=== PATIENT | female | born 1965 | race African-American/Black ===

== ENCOUNTER → 2016-12-03 | Outpatient (CLI) | payer OTHER, MEDICAID ==
[2016-08-01 02:05] VITALS: BP 121/81
--- NOTE | 2016-12-03 12:30 | MRI ---
HISTORY: Low back pain radiating down right leg Study: MRI lumbar spine without contrast Comparison: 11/25/2014 Technique: Multiplanar multi-sequence MRI of the lumbar spine was obtained. Sagittal T1, sagittal T 2, and stir weighted images, axial T1, and axial T2 images were obtained. Findings: The lumbar spine demonstrates normal alignment. there is some degenerative marrow endplate edema at L4-5 associated with a Schmorl's node at the inferior endplate of L4 and superior plate of L5. The conus of the cord terminates normally. The surrounding soft tissues are within normal limits. Verte bral body heights are preserved. There is multilevel spondylosis and disc desiccation throughout the visualized lumbar and thoracic spine. T12 -- L1: No significant stenosis. L1 -- L2: No significant stenosis. L2 -- L3: Mild to moderate bilateral facet hypertrophic changes without significant mass/stenosis. L3 -- L4: There is a broad-based disc bulge and mild to moderate bilateral facet hypertrophic change s without significant stenosis. L4 -- L5: There is a large circumferential disc bulge and small central annular tear with associated facet degenerative change. There is resultant mild to moderate bilateral foraminal narrowing, sligh tly increased on the right side. L5 -- S1: There is a right lateral annular tear associated with a disc bulge slightly asymmetric to the right with resultant moderate right foraminal stenosis, possibly with disc material contacting t he exiting right L5 nerve. Mild bilateral facet degenerative changes without listhesis. IMPRESSION: 1. L5-S1 disc bulge asymmetric to the right with associated right lateral annular tear resulting in moderate foraminal stenosis, possibly with disc material contacting the exiting right L5 nerve, celeste elate clinically with exam. 2. Mild to moderate bilateral foraminal narrowing at L4-5, slightly greater on the right side. 3. Reactive degenerative endplate marrow changes at L4-5 associated with chronic Schmorl's nodes. Reported By:
== END ==
LOC: RAD 10:56
PROVIDERS: ATTEND Nurse Practitioner Family
DX: M54.41 Lumbago with sciatica, right side (principal)
CPT/HCPCS: 72148

== ENCOUNTER → 2016-12-27 | Outpatient (CLI) | payer OTHER, MEDICAID ==
[2016-08-01 02:05] VITALS: BP 121/81
[2016-12-27 08:24] LABS: BASOPHILS # (AUTO) 0.1 X10^3/uL (0.0-0.1); BASOPHILS % (AUTO) 1.3 % (0.2-1.0); EOSINOPHILS # (AUTO) 0.1 x10^3/uL (0.0-0.2); EOSINOPHILS % (AUTO) 1.2 % (0.9-2.9); HEMATOCRIT 47.7 % (36.0-47.0); LYMPHOCYTES # (AUTO) 2.3 X10^3/uL (1.3-2.9); LYMPHOCYTES % (AUTO) 41.4 % (21.0-51.0); MEAN CORPUSCULAR HEMOGLOBIN 30.9 pg (27.0-34.0); MEAN CORPUSCULAR HGB CONC 33.6 g/dL (33.0-35.0); MEAN PLATELET VOLUME 8.8 fL (7.4-11.0); MONOCYTES # (AUTO) 0.4 x10^3/uL (0.3-0.8); MONOCYTES % (AUTO) 6.4 % (0.0-13.0); NEUTROPHILS # (AUTO) 2.8 x10^3/uL (2.2-4.8); NEUTROPHILS % (AUTO) 49.7 % (42.0-75.0); PLATELET COUNT 223 X10^3/uL (150.0-450.0); RED BLOOD COUNT 5.18 X10^6/uL (3.5-5.4); RED CELL DISTRIBUTION WIDTH 13.3 % (11.6-16.5); WHITE BLOOD COUNT 5.7 X10^3/uL (3.6-10.0)
[2016-12-27 08:39] LABS: ALANINE AMINOTRANSFERASE 20 Units/L (12-78); ALBUMIN 3.7 g/dL (3.4-5.0); ALKALINE PHOSPHATASE 81 Units/L (46-116); ASPARTATE AMINO TRANSFERASE 12 Units/L (15-37); BLOOD UREA NITROGEN 10 mg/dL (7-18); CALCIUM 9.1 mg/dL (8.5-10.1); CARBON DIOXIDE 29.7 mmol/L (21-32); CHLORIDE 99 mmol/L (98-107); CHOL/HDL RATIO 1.9 (0.0-5.0); CHOLESTEROL 160 mg/dL (0-200); CREATININE 0.99 mg/dL (0.55-1.02); GLUCOSE 105 mg/dL (65-99); HDL CHOLESTEROL 83 mg/dL (40-60); SODIUM 136 mmol/L (136-145); TOTAL PROTEIN 7.7 g/dL (6.4-8.2); TRIGLYCERIDES 44 mg/dL (0-150); eGFR BLACK RACES > 60 (>60); eGFR NON BLACK RACES > 60 (>60)
== END ==
LOC: LAB 07:50
PROVIDERS: ATTEND Nurse Practitioner Family
DX: Z00.00 Encounter for general adult medical examination without abnormal findings (principal); R79.89 Other specified abnormal findings of blood chemistry
CPT/HCPCS: 36415; 80053; 80061; 82671; 84403; 85025

== ENCOUNTER → 2017-01-01 | Outpatient (CLI) | payer OTHER, MEDICAID ==
[2016-08-01 02:05] VITALS: BP 121/81
--- NOTE | 2017-01-02 09:59 | MG ---
HISTORY: SCREENING Comparison: Multiple priors dating back to December 29, 2012 FINDINGS: Bilateral CC and MLO projections of the right and left breast were obtained. Heterogeneously dense fibroglandular tissue is seen to be present without significant interval change. No suspicious arch itectural distortion, mass or clustered microcalcifications can be observed to suggest malignancy. No skin thickening or nipple retraction is appreciated. No pathological lymphadenopathy can be kenyon ntified. Benign-appearing calcifications are noted within the right and left breast. IMPRESSION: NO RADIOGRAPHIC EVIDENCE OF MALIGNANCY. ACR CATEGORY 2 - benign findings. FOLLOW-UP EXAM 1 YEAR. Diagnostic CAD was utilized and reviewed. * 0 (ZERO) - ASSESSMENT INCOMPLETE; ADDITIONAL IMAGING IS NEEDED. * 1/ (ONE) - NEGATIVE. * 2/II (TWO) - BENIGN FINDINGS. * 3/III (THREE) - PROBABLY BENIGN FINDING; SHORT INTERVAL FOLLOW-UP SUGGESTED. * 4/IV (FOUR) - SUSPICIOUS ABNORMALITY; BIOPSY SHOULD BE CONSIDERED. * 5/V (FIVE) - HIGHLY SUSPICIOUS OF MALIGNANCY; BIOPSY SHOULD BE PERFORMED. A NEGATIVE X-RAY REPORT SHOULD NOT DELAY BIOPSY IF A DOMINANT OR CLINICALLY SUSPICIOUS MASS IS PRESENT; 4 TO 8 PERCENT OF CANCERS ARE NOT IDENTIFIED BY X-RAY. A NEG ATIVE REPORT MAY REINFORCE THE CLINICAL IMPRESSION. ADENOSIS AND DENSE BREASTS MAY OBSCURE AN UNDER LYING NEOPLASM. Reported By:
== END ==
LOC: RAD 13:47
PROVIDERS: ATTEND Nurse Practitioner Family
DX: Z00.00 Encounter for general adult medical examination without abnormal findings (principal); Z12.31 Encounter for screening mammogram for malignant neoplasm of breast; K21.9 Gastro-esophageal reflux disease without esophagitis; I10 Essential (primary) hypertension; Z79.890 Hormone replacement therapy; Z12.11 Encounter for screening for malignant neoplasm of colon
CPT/HCPCS: 77067; 82270

== ENCOUNTER → 2017-04-02 | Outpatient (CLI) | payer OTHER, MEDICAID ==
[2016-08-01 02:05] VITALS: BP 121/81
[2017-04-02 07:56] LABS: BASOPHILS # (AUTO) 0.1 X10^3/uL (0.0-0.1); BASOPHILS % (AUTO) 1.3 % (0.2-1.0); EOSINOPHILS # (AUTO) 0.1 x10^3/uL (0.0-0.2); EOSINOPHILS % (AUTO) 1.8 % (0.9-2.9); HEMATOCRIT 45.5 % (36.0-47.0); HEMOGLOBIN 15.5 g/dL (12.0-16.0); LYMPHOCYTES # (AUTO) 3.1 X10^3/uL (1.3-2.9); LYMPHOCYTES % (AUTO) 48.9 % (21.0-51.0); MEAN CORPUSCULAR HEMOGLOBIN 31.7 pg (27.0-34.0); MEAN CORPUSCULAR VOLUME 93.2 fL (80.0-100.0); MEAN PLATELET VOLUME 9.4 fL (7.4-11.0); MONOCYTES # (AUTO) 0.4 x10^3/uL (0.3-0.8); MONOCYTES % (AUTO) 6.2 % (0.0-13.0); NEUTROPHILS # (AUTO) 2.6 x10^3/uL (2.2-4.8); NEUTROPHILS % (AUTO) 41.8 % (42.0-75.0); PLATELET COUNT 263 X10^3/uL (150.0-450.0); RED BLOOD COUNT 4.88 X10^6/uL (3.5-5.4); RED CELL DISTRIBUTION WIDTH 14.6 % (11.6-16.5); WHITE BLOOD COUNT 6.3 X10^3/uL (3.6-10.0)
[2017-04-02 08:06] LABS: ALANINE AMINOTRANSFERASE 15 Units/L (12-78); ALBUMIN 3.6 g/dL (3.4-5.0); ALKALINE PHOSPHATASE 74 Units/L (46-116); ASPARTATE AMINO TRANSFERASE 8 Units/L (15-37); BLOOD UREA NITROGEN 8 mg/dL (7-18); CALCIUM 8.9 mg/dL (8.5-10.1); CARBON DIOXIDE 29.8 mmol/L (21-32); CHLORIDE 104 mmol/L (98-107); CREATININE 0.87 mg/dL (0.55-1.02); GLUCOSE 99 mg/dL (65-99); SODIUM 141 mmol/L (136-145); TOTAL PROTEIN 7.6 g/dL (6.4-8.2); eGFR BLACK RACES > 60 (>60); eGFR NON BLACK RACES > 60 (>60)
== END ==
LOC: LAB 07:28
PROVIDERS: ATTEND Nurse Practitioner Family
DX: I10 Essential (primary) hypertension (principal); Z79.890 Hormone replacement therapy
CPT/HCPCS: 36415; 80053; 84270; 84402; 84403; 85025

== ENCOUNTER → 2017-04-15 | Outpatient (CLI) | payer OTHER, MEDICAID ==
[2016-08-01 02:05] VITALS: BP 121/81
== END ==
LOC: LAB 09:28
PROVIDERS: ATTEND Nurse Practitioner Family
DX: E87.6 Hypokalemia (principal)
CPT/HCPCS: 36415; 84132

== ENCOUNTER → 2017-05-23 | Outpatient (CLI) | payer OTHER, MEDICAID ==
[2016-08-01 02:05] VITALS: BP 121/81
[2017-05-23 12:10] LABS: BASOPHILS % (AUTO) 0.8 % (0.2-1.0); EOSINOPHILS # (AUTO) 0.1 x10^3/uL (0.0-0.2); HEMATOCRIT 45.8 % (36.0-47.0); HEMOGLOBIN 15.6 g/dL (12.0-16.0); LYMPHOCYTES # (AUTO) 2.7 X10^3/uL (1.3-2.9); LYMPHOCYTES % (AUTO) 47.8 % (21.0-51.0); MEAN CORPUSCULAR HEMOGLOBIN 31.8 pg (27.0-34.0); MEAN CORPUSCULAR HGB CONC 34.2 g/dL (33.0-35.0); MEAN CORPUSCULAR VOLUME 93.2 fL (80.0-100.0); MEAN PLATELET VOLUME 8.9 fL (7.4-11.0); MONOCYTES # (AUTO) 0.3 x10^3/uL (0.3-0.8); MONOCYTES % (AUTO) 6.1 % (0.0-13.0); NEUTROPHILS # (AUTO) 2.5 x10^3/uL (2.2-4.8); NEUTROPHILS % (AUTO) 44.3 % (42.0-75.0); PLATELET COUNT 223 X10^3/uL (150.0-450.0); RED BLOOD COUNT 4.92 X10^6/uL (3.5-5.4); RED CELL DISTRIBUTION WIDTH 14.5 % (11.6-16.5); WHITE BLOOD COUNT 5.7 X10^3/uL (3.6-10.0)
[2017-05-23 12:17] LABS: BLOOD UREA NITROGEN 13 mg/dL (7-18); CALCIUM 9.4 mg/dL (8.5-10.1); CARBON DIOXIDE 32.6 mmol/L (21-32); CHLORIDE 106 mmol/L (98-107); CREATININE 0.85 mg/dL (0.55-1.02); SODIUM 146 mmol/L (136-145); eGFR BLACK RACES > 60 (>60); eGFR NON BLACK RACES > 60 (>60)
--- NOTE | 2017-05-23 13:43 | RAD ---
Examination: Chest x-ray. Clinical History: Bronchitis. Technique: PA and lateral views of the chest were obtained. Comparison: 09/29/2015. Findings: The cardiac and mediastinal contours are within normal limits. No pneumothorax or pleural effusion is noted. The lungs appear clear. There is a mild thoracolumbar scoliosis seen convex to the right, which may be positional in nature. Minor degenerative changes are noted in the spine. No acute osseous abnormality is noted. Impression: 1. No acute disease. Reported By:
== END ==
LOC: LAB 11:48
PROVIDERS: ATTEND Nurse Practitioner Family
DX: J41.1 Mucopurulent chronic bronchitis (principal); R06.2 Wheezing; R60.0 Localized edema
CPT/HCPCS: 36415; 71020; 80048; 85025

== ENCOUNTER 2017-09-20 16:48 | Emergency (ER) | payer OTHER, MEDICAID ==
[2017-09-20 16:54] VITALS: BP 135/73; BMI 23.1
[2017-09-20] MEDS ORDERED: SOLU-Medrol 125 MG VIAL IVP ONE (17:12)
[2017-09-20] MEDS ORDERED: DUONEB 0.5 MG/3 MG NEB ONE (17:12)
--- NOTE | 2017-09-20 17:16 | DR.CP ---
HPI - Time Seen Time seen: 17:11 - PCP Primary Care Physician: marilynn tran - Complaint Chief Complaint Doctor Comments: Patient is complaining of left sided chest pain with wheezing and SOB for the past three days getting worst today. States she smokes 1/2 pack cigarettes daily but stopped drinking alcohol years ago. She denies cold, cough, fever or chills. She denies any recent trauma. States they gave her an aspirin today in the ambulance but she does not normally take aspirins. Chief Complaint:: chest pain - Reviewed Nurses Notes Review: Yes - Source History Provided: Patient - Mode of Arrival Mode of Arrival: EMS - Timing Onset of Chief Complaint: 09/20/17 Came on: Suddenly Pain: Present Now - Duration Duration: Constant How lon Duration: Days - Location Location of Chest Pain: Chest Chest Pain Radiation Location: None - Context Onset: At rest Cardiac Risk Factors: HTN PE Risk Factors: None History of: Aspirin in last 24 hours Prehospital Care: Monitor - Quality Quality: Sharp - Severity Severity: Moderate - Modifying Factors Worsens: Coughing, Breathing, Movement Impoves: Nothing - Associated Signs and Symptoms Associated Signs and Symptoms: Shortness of Breath PMH - PMH Past Medical History: Yes Past Medical History: COPD, GERD, Hypertension Past Surgical History: Yes Surgical History: Hysterectomy - Family History History of Family Medical Conditions: No - Social History Does patient currently use any type of tobacco product: Yes Have you used tobacco products in the last 12 months: Yes Type of Tobacco Use: Cigarettes Do you use any recreational Drugs:: No - infectious screening In the last 2 months have you had wt loss of >10#?: NO Have you had fever, night sweats or hemotysis?: No Have you traveled outside the country in the last 6 months?: No ROS - Review of Systems Constitutional: No Symptoms Reported, Irritable Eyes: No Symptoms Reported, See HPI. negative: Eye Pain, Blurred Vision, Tearing, Discharge, Photophobia, Diplopia, Other ENTM: No Symptoms Reported Respiratoy: No Symptoms Reported, Non-Productive Cough, Short of Breath, Wheezing Cardiovascular: No Symptoms Reported, Chest Pain. negative: See HPI, Edema, Palpitations, Syncope, Cyanosis, Skin Mottling, Other Gastrointestinal/Abdominal: No Symptoms Reported, Abdominal Pain (LUQ abdominal pain) Genitourinary: No Symptoms Reported Neurological: No Symptoms Reported Musculoskeletal: No Symptoms Reported Integumentary: No Symptoms Reported Hematologic/Lymphatic: No Symptoms Reported Endocrine: No Symptoms Reported Psychiatric: No Symptoms Reported PE - Vitals Vitals: Temperature 97.9 F Pulse Rate 97 Respiratory Rate 18 Blood Pressure 135/73 O2 Sat by Pulse Oximetry 99 - General Limitations: No Limitations General Appearance: Alert, In Distress (moderate) - Head Head Exam: Normal Inspection, Atraumatic, Normocephalic - Eyes Eye exam: Normal Appearance, PERRL, EOMI. negative: Scleral Icterus, Conjunctival Injection, Nystagmus, Miosis, Mydrasis, Periorbital Swelling, Periorbital Tenderness, Other - ENT ENT Exam: Normal Exam, Normal Oropharynx, Normal External Ear Exam, Mucous Membranes Moist, TM's Normal Bilaterally - Chest Chest Inspection: Normal Inspection, Symmetric Chest Wall Rise - Respiratory Respiratory Exam: Normal Lung Sounds Bilat Respiratory Exam: Bilateral Clear to Auscultation - Cardiovascular Cardiovascular Exam: Regular Rate, Normal Rhythm, Normal Heart Sounds Pulse: Normal, Radial. negative: Femoral, Left, Right, Absent, Weak, Irregular Edema: Normal - Abdominal Exam Abdominal Exam: Normal Inspection, Normal Bowel Sounds, Tenderness (LUQ tenderness), Hypoactive Bowel Sounds, Organomegaly Abdominal Tenderness: LUQ, Epigastrium, Mild - Extremities Extremities Exam: Normal Inspection, Full ROM, Normal Capillary Refill - Back Back Exam: Normal Inspection, Full ROM, (L) CVA Tenderness - Neurologic Neurological Exam: Alert, Oriented X3, CN II-XII Intact, Reflexes Normal. negative: Normal Gait (gait not tested) - Psychiatric Psychiatric Exam: Normal Affect, Normal Mood - Skin Skin Exam: Warm, Dry, Intact, Normal Color ROR - Labs Reviewed Laboratory Results Reviewed?: Yes (all labs and x-ray results reviewed and discussed with patient) Result Diagrams: 09/20/17 17:26 09/20/17 17:26 Laboratory: WBC 5.5 X10^3/uL (3.6-10.0) 09/20/17 17:26 RBC 4.57 X10^6/uL (3.5-5.4) 09/20/17 17:26 Hgb 14.3 g/dL (12.0-16.0) 09/20/17 17:26 Hct 42.1 % (36.0-47.0) 09/20/17 17:26 MCV 92.1 fL (80.0-100.0) 09/20/17 17:26 MCH 31.3 pg (27.0-34.0) 09/20/17 17:26 MCHC 34.0 g/dL (33.0-35.0) 09/20/17 17:26 RDW 13.6 % (11.6-16.5) 09/20/17 17:26 Plt Count 308 X10^3/uL (150.0-450.0) 09/20/17 17:26 MPV 8.5 fL (7.4-11.0) 09/20/17 17:26 Neut % 52.7 % (42.0-75.0) 09/20/17 17: Lymph % 36.1 % (21.0-51.0) 09/20/17 17:26 [place] % 8.1 % (0.0-13.0) 09/20/17 17:26 Eos % 1.9 % (0.9-2.9) 09/20/17 17:26 Baso % 1.2 % (0.2-1.0) H 09/20/17 17:26 Neut # 2.9 x10^3/uL (2.2-4.8) 09/20/17 17:26 Lymph # 2.0 X10^3/uL (1.3-2.9) 09/20/17 17:26 [place] # 0.4 x10^3/uL (0.3-0.8) 09/20/17 17:26 Eos # 0.1 x10^3/uL (0.0-0.2) 09/20/17 17:26 Baso # 0.1 X10^3/uL (0.0-0.1) 09/20/17 17:26 Absolute Nucleated RBC 0.1 /100WBC 09/20/17 17:26 INR Target Range - 09/20/17 17: INR 0.97 (0.8-1.3) 09/20/17 17:26 PTT 28.5 SECONDS (22.9-36.5) 09/20/17 17:26 PTT Comment - 09/20/17 17:26 Sodium 144 mmol/L (136-145) 09/20/17 17:26 Corrected Sodium TNP 09/20/17 17:26 Potassium 4.1 mmol/L (3.5-5.1) 09/20/17 17:26 Chloride 105 mmol/L (98-107) 09/20/17 17:26 Carbon Dioxide 30.4 mmol/L (21-32) 09/20/17 17:26 BUN 10 mg/dL (7-18) 09/20/17 17:26 Creatinine 0.84 mg/dL (0.55-1.02) 09/20/17 17:26 Est GFR (MDRD) Af Amer > 60 (>60) 09/20/17 17:26 Est GFR (MDRD) Non-Af > 60 (>60) 09/20/17 17:26 Glucose 91 mg/dL (65-99) 09/20/17 17:26 Calcium 9.4 mg/dL (8.5-10.1) 09/20/17 17:26 Corrected Calcium 10.0 mg/dL (8.5-10.1) 09/20/17 17:26 Magnesium 1.9 mg/dL (1.7-2.9) 09/20/17 17:26 Total Bilirubin 0.10 mg/dL (0.2-1.0) L 09/20/17 17:26 AST 9 Units/L (15-37) L 09/20/17 17:26 ALT 16 Units/L (12-78) 09/20/17 17:26 Alkaline Phosphatase 78 Units/L (46-116) 09/20/17 17:26 Creatine Kinase 39 Units/L (26-192) 09/20/17 17:26 CK-MB (CK-2) < 1.0 ng/mL (0-4.0) 09/20/17 17:26 CK/CKMB % Calc 2.6 % (<4) 09/20/17 17:26 Troponin I < 0.02 ng/mL (0-1.5) 09/20/17 17:26 Total Protein 7.5 g/dL (6.4-8.2) 09/20/17 17:26 Albumin 3.3 g/dL (3.4-5.0) L 09/20/17 17:26 Globulin 4.2 g/dL (2.5-4.5) 09/20/17 17:26 Albumin/Globulin Ratio 0.8 Ratio (1.1-2.1) L 09/20/17 17:26 - XRAY XRAY Interpreted by: Radiologist (CXR: no acute cardiopulmonary disease) - EKG Rate: 90 [place]: Normal Rhythm: NSR Block: RBBB Hypertrophy: None ST: Nonsp - Diagnosis Discharge Problem: Bronchitis with bronchospasm, Dyspepsia Chest pain Qualifiers: Chest pain type: unspecified Qualified Code(s): R07.9 - Chest pain, unspecified - Discharge Plan Disposition: HOME, SELF-CARE Condition: Stable Prescriptions: Levofloxacin [LEVAQUIN TAB 500 MG *] 500 mg PO DAILY #7 tab Prednisone [Prednisone Tab 20 mg] 20 mg PO QAM PRN #5 tab PRN Reason: - Follow ups/Referrals Follow ups/Referrals: IZABELLA TRAN [Primary Care Provider] - 3 days - Instructions Instructions: Bronchospasm, Adult, Acute Bronchitis
[2017-09-20 17:34] LABS: BASOPHILS # (AUTO) 0.1 X10^3/uL (0.0-0.1); BASOPHILS % (AUTO) 1.2 % (0.2-1.0); EOSINOPHILS # (AUTO) 0.1 x10^3/uL (0.0-0.2); EOSINOPHILS % (AUTO) 1.9 % (0.9-2.9); HEMATOCRIT 42.1 % (36.0-47.0); HEMOGLOBIN 14.3 g/dL (12.0-16.0); LYMPHOCYTES % (AUTO) 36.1 % (21.0-51.0); MEAN CORPUSCULAR HEMOGLOBIN 31.3 pg (27.0-34.0); MEAN CORPUSCULAR VOLUME 92.1 fL (80.0-100.0); MEAN PLATELET VOLUME 8.5 fL (7.4-11.0); MONOCYTES # (AUTO) 0.4 x10^3/uL (0.3-0.8); MONOCYTES % (AUTO) 8.1 % (0.0-13.0); NEUTROPHILS # (AUTO) 2.9 x10^3/uL (2.2-4.8); NEUTROPHILS % (AUTO) 52.7 % (42.0-75.0); PLATELET COUNT 308 X10^3/uL (150.0-450.0); RED BLOOD COUNT 4.57 X10^6/uL (3.5-5.4); RED CELL DISTRIBUTION WIDTH 13.6 % (11.6-16.5); WHITE BLOOD COUNT 5.5 X10^3/uL (3.6-10.0)
--- NOTE | 2017-09-20 17:37 | RAD ---
HISTORY: 52-year-old female with chest pain. Study: Frontal view of the chest. Comparison: Chest radiographs 05/23/2017 Findings: The trachea is midline. The cardiac silhouette is unremarkable. The lungs are clear without focal c onsolidation, effusion or pneumothorax. Soft tissues are unremarkable. Osseous structures are unrema rkable. IMPRESSION: 1. No acute cardiopulmonary disease. Reported By:
[2017-09-20 17:52] LABS: BLOOD UREA NITROGEN 10 mg/dL (7-18); CALCIUM 9.4 mg/dL (8.5-10.1); CARBON DIOXIDE 30.4 mmol/L (21-32); CHLORIDE 105 mmol/L (98-107); CREATININE 0.84 mg/dL (0.55-1.02); SODIUM 144 mmol/L (136-145); TROPONIN I < 0.02 ng/mL (0-1.5); eGFR BLACK RACES > 60 (>60); eGFR NON BLACK RACES > 60 (>60)
[2017-09-20] MEDS ORDERED: SOLU-Medrol 125 MG VIAL ONE (17:55)
[2017-09-20] MEDS ORDERED: NS 1000 ML 1,000 ML ONE (17:55)
[2017-09-20 17:56] LABS: ALANINE AMINOTRANSFERASE 16 Units/L (12-78); ALBUMIN 3.3 g/dL (3.4-5.0); ALKALINE PHOSPHATASE 78 Units/L (46-116); ASPARTATE AMINO TRANSFERASE 9 Units/L (15-37); CREATINE KINASE 39 Units/L (26-192); CREATINE KINASE MB < 1.0 ng/mL (0-4.0); MAGNESIUM 1.9 mg/dL (1.7-2.9); TOTAL PROTEIN 7.5 g/dL (6.4-8.2)
[2017-09-20] MEDS ORDERED: NS 1000 ML 1,000 ML IV SCH (18:00)
[2017-09-20 18:02] LABS: CKMB % 2.6 % (<4)
[2017-09-20 18:39] LABS: AMYLASE 54 Units/L (25-115); LIPASE 201 Units/L (73-393)
[2017-09-20] MEDS ORDERED: LEVAQUIN TAB 500 MG PO STA (18:44)
[2017-09-20] MEDS ORDERED: LEVAQUIN TAB 500 MG ONE (18:51)
== END 2017-09-20 18:56 | disposition home or self-care (01) ==
LOC: ER 16:54
DX: J98.01 Acute bronchospasm (principal); R10.13 Epigastric pain; R07.89 Other chest pain; Z72.0 Tobacco use
CPT/HCPCS: 36415; 71045; 80053; 82150; 82550; 82553; 83690; 83735; 84484; 85025; 85610; 85730; 93005; 93010; 94640; 96365; 96374; 99283; J2930

== ENCOUNTER 2017-10-13 11:25 | Emergency (ER) | payer OTHER, MEDICAID ==
[2017-10-13 11:31] VITALS: BP 124/76; BMI 23.8
[2017-10-13] MEDS ORDERED: DUONEB 0.5 MG/3 MG NEB ONE (11:37)
[2017-10-13] MEDS ORDERED: DUONEB 0.5 MG/3 MG ONE (11:38)
--- NOTE | 2017-10-13 12:02 | DR.GENAD ---
HPI - PCP Primary Care Physician: gregg tran - HPI Comment HPI Comment: GETTING WORSE. - Complaint/Symptoms Chief Complaint Doctors Comments: FEVER, SHOULDER PAIN AND COUGH FOR 4 DAYS. Chief Complaint:: pt stated she has had a fever , coughing and shoulder pain for 4 days - Nurses notes reviewed Nurses Notes Review: Yes - Source History Provided: Patient - Mode of Arrival Mode of Arrival: Ambulatory - Timing Onset of Chief Complaint: 10/09/17 Came on: Suddenly - Duration Duration: Constant Duration: Days - Severity Severity: Moderate PMH - PMH Past Medical History: Yes Past Medical History: COPD, GERD, Hypertension Past Surgical History: Yes Surgical History: Hysterectomy - Family History History of Family Medical Conditions: No - Social History Does patient currently use any type of tobacco product: Yes Have you used tobacco products in the last 12 months: Yes Type of Tobacco Use: Cigarettes How many years tobacco product used: 40 Does any household member use tobacco: Yes Alcohol Use: Occasionally Do you use any recreational Drugs:: No Lives With: Family Lives Where: Home - infectious screening In the last 2 months have you had wt loss of >10#?: NO Have you had fever, night sweats or hemotysis?: No Have you traveled outside the country in the last 6 months?: No Isolation: Standard ROS - Review of Systems Constitutional: Fever, Weakness, Fatigue. negative: Chills Eyes: No Symptoms Reported ENTM: No Symptoms Reported Respiratoy: Productive Cough, Short of Breath, Wheezing. negative: Hemoptysis Cardiovascular: Chest Pain Genitourinary: No Symptoms Reported Neurological: No Symptoms Reported, Weakness Musculoskeletal: Shoulder Integumentary: No Symptoms Reported Hematologic/Lymphatic: No Symptoms Reported Endocrine: No Symptoms Reported PE - Vital Signs Vitals: Temperature 100.7 F Pulse Rate 108 Respiratory Rate 18 Blood Pressure 124/76 O2 Sat by Pulse Oximetry 87 - General Limitations: No Limitations General Appearance: Alert - Head Head Exam: Normal Inspection - Eyes Eye exam: Normal Appearance - ENT ENT Exam: Normal External Ear Exam External Ear Exam: Normal External Inspection TM/Canal Exam: Bilateral Normal Nose Exam: Normal Nose Exam Mouth Exam: Normal Inspection Throat Exam: Normal Inspection - Neck Neck Exam: Trachea Midline - Chest Chest Inspection: Symmetric Chest Wall Rise - Respiratory Respiratory Exam: Normal Lung Sounds Bilat Respiratory Exam: Bilateral Wheezing, Bilateral Rhonchi, Upper Wheezing, Upper Rhonchi, Lower Wheezing, Lower Rhonchi - Cardiovascular Cardiovascular Exam: Regular Rate, Normal Rhythm, Normal Heart Sounds - Abdominal Exam Abdominal Exam: Normal Bowel Sounds, Soft. negative: Tenderness - Extremities Extremities Exam: negative: Tenderness (SHOULDER.) - Back Back Exam: Normal Inspection - Neurologic Neurological Exam: Alert, Oriented X3 - Psychiatric Psychiatric Exam: Normal Affect, Normal Mood - Skin Skin Exam: Normal Color MDM - Differential Diagnosis Differential Diagnosis: BRONCHITIS, FLU, COPD. Course - Treatment Treatment: SEE ORDERS. - Education/Counseling Education/Counseling: Patient, Education Educated On: Diagnosis, Needs for Follow Up ROR - Labs Reviewed Result Diagrams: 10/13/17 12:13 10/13/17 12:13 Laboratory: 10/13/17 13:23 Sputum - Expectorated Sputum Sputum Culture - Preliminary 10/13/17 13:23 Sputum - Expectorated Sputum - Final WBC 6.5 X10^3/uL (3.6-10.0) 10/13/17 12:13 RBC 5.12 X10^6/uL (3.5-5.4) 10/13/17 12:13 Hgb 15.9 g/dL (12.0-16.0) 10/13/17 12:13 Hct 46.7 % (36.0-47.0) 10/13/17 12:13 MCV 91.3 fL (80.0-100.0) 10/13/17 12:13 MCH 31.1 pg (27.0-34.0) 10/13/17 12:13 MCHC 34.1 g/dL (33.0-35.0) 10/13/17 12:13 RDW 13.6 % (11.6-16.5) 10/13/17 12:13 Plt Count 198 X10^3/uL (150.0-450.0) 10/13/17 12:13 MPV 9.1 fL (7.4-11.0) 10/13/17 12:13 Neut % 54.7 % (42.0-75.0) 10/13/17 12:13 Lymph % 35.1 % (21.0-51.0) 10/13/17 12:13 [place] % 9.3 % (0.0-13.0) 10/13/17 12:13 Eos % 0.4 % (0.9-2.9) L 10/13/17 12:13 Baso % 0.5 % (0.2-1.0) 10/13/17 12:13 Neut # 3.5 x10^3/uL (2.2-4.8) 10/13/17 12:13 Lymph # 2.3 X10^3/uL (1.3-2.9) 10/13/17 12:13 [place] # 0.6 x10^3/uL (0.3-0.8) 10/13/17 12:13 Eos # 0.0 x10^3/uL (0.0-0.2) 10/13/17 12:13 Baso # 0.0 X10^3/uL (0.0-0.1) 10/13/17 12:13 Absolute Nucleated RBC 0.0 /100WBC 10/13/17 12:13 Sample Site Right brachial 10/13/17 13:13 ABG pH 7.420 (7.35-7.45) 10/13/17 13:13 ABG pCO2 40.0 mmHg (35.0-45.0) 10/13/17 13:13 ABG pO2 44.0 mmHg (80.0-100.0) L* 10/13/17 13:13 ABG HCO3 25.9 mmol/L (22-26) 10/13/17 13:13 ABG O2 Saturation 81.0 % (90-100) L* 10/13/17 13:13 ABG Base Excess 1.3 mmol/L (-2.0-2.0) 10/13/17 13:13 Omar Test Na 10/13/17 13:13 A-a Gradient 56.0 mmHg 10/13/17 13:13 FiO2 21.000 10/13/17 13:13 Blood Gas Comments Bruce well aw 10/13/17 13:13 Sodium 137 mmol/L (136-145) 10/13/17 12:13 Corrected Sodium TNP 10/13/17 12:13 Potassium 3.4 mmol/L (3.5-5.1) L 10/13/17 12:13 Chloride 100 mmol/L (98-107) 10/13/17 12:13 Carbon Dioxide 26.0 mmol/L (21-32) 10/13/17 12:13 BUN 9 mg/dL (7-18) 10/13/17 12:13 Creatinine 0.99 mg/dL (0.55-1.02) 10/13/17 12:13 Est GFR (MDRD) Af Amer > 60 (>60) 10/13/17 12:13 Est GFR (MDRD) Non-Af > 60 (>60) 10/13/17 12:13 Glucose 98 mg/dL (65-99) 10/13/17 12:13 Lactic Acid 1.0 mmol/L (0.4-2.0) 10/13/17 12:13 Calcium 9.0 mg/dL (8.5-10.1) 10/13/17 12:13 Corrected Calcium TNP 10/13/17 12:13 Total Bilirubin 0.20 mg/dL (0.2-1.0) 10/13/17 12:13 AST 28 Units/L (15-37) 10/13/17 12:13 ALT 23 Units/L (12-78) 10/13/17 12:13 Alkaline Phosphatase 77 Units/L (46-116) 10/13/17 12:13 Total Protein 8.2 g/dL (6.4-8.2) 10/13/17 12:13 Albumin 3.7 g/dL (3.4-5.0) 10/13/17 12:13 Globulin 4.5 g/dL (2.5-4.5) 10/13/17 12:13 Albumin/Globulin Ratio 0.8 Ratio (1.1-2.1) L 10/13/17 12:13 Specimen Type Clean catch urine 10/13/17 13:34 Urine Color Yellow (YELLOW) 10/13/17 13:34 Urine Appearance Slightly hazy (CLEAR) 10/13/17 13:34 Urine pH 6.0 (5.0 - 8.0) 10/13/17 13:34 Ur Specific [place] 1.020 (1.000-1.030) 10/13/17 13:34 Urine Protein 3+ (NEGATIVE) 10/13/17 13:34 Urine Glucose (UA) Negative (NEGATIVE) 10/13/17 13:34 Urine Ketones 1+ (NEGATIVE) 10/13/17 13:34 Urine Occult Blood 3+ (NEGATIVE) 10/13/17 13:34 Urine Nitrite Negative (NEGATIVE) 10/13/17 13:34 Urine Bilirubin Negative (NEGATIVE) 10/13/17 13:34 Urine Urobilinogen Normal (NORMAL) 10/13/17 13:34 Ur Leukocyte Esterase Negative (NEGATIVE) 10/13/17 13:34 Urine RBC 5-7 /HPF (NEGATIVE) 10/13/17 13:34 Urine WBC 3-4 /HPF (NEGATIVE) 10/13/17 13:34 Ur Squamous Epith Cells Few /HPF (NEGATIVE) 10/13/17 13:34 Amorphous Sediment Trace /HPF (NEGATIVE) 10/13/17 13:34 Urine Bacteria Trace /HPF (NEGATIVE) 10/13/17 13:34 Hyaline Casts Rare /LPF (NEGATIVE) 10/13/17 13:34 Ur Culture Indicated? No/not indicated 10/13/17 13:34 Influenza Type A (PCR) Positive (NEGATIVE) A 10/13/17 11:39 Influenza Type B (PCR) Negative (NEGATIVE) 10/13/17 11:39 - XRAY XRAY Interpreted by: Radiologist XRAY Findings: REPORT DISCUSS WITH PATIENT. - Diagnosis Discharge Problem: Influenza, Bronchitis, COPD exacerbation - Discharge Plan Disposition: HOME, SELF-CARE Condition: Stable Prescriptions: Amoxicillin & Pot Clavulanate [AUGMENTIN TAB 875 mg/125 mg *] 1 tab PO BID #20 tab Benzonatate [TESSALON PERLES *] 100 - 200 mg PO TID PRN #24 cap PRN Reason: Cough Prednisone [Prednisone Tab 10 mg] 10 mg PO QAM #7 tab - Follow ups/Referrals Follow ups/Referrals: Gregg Tran [Primary Care Provider] - 3 days - Instructions Instructions: Chronic Obstructive Pulmonary Disease Exacerbation, [id number] , Acute Bronchitis, [id number], Influenza, Pediatric, [id number] Additional Instructions: RETURN TO ED IF WORSE.
[2017-10-13 12:33] LABS: BASOPHILS % (AUTO) 0.5 % (0.2-1.0); EOSINOPHILS % (AUTO) 0.4 % (0.9-2.9); HEMATOCRIT 46.7 % (36.0-47.0); HEMOGLOBIN 15.9 g/dL (12.0-16.0); LYMPHOCYTES # (AUTO) 2.3 X10^3/uL (1.3-2.9); LYMPHOCYTES % (AUTO) 35.1 % (21.0-51.0); MEAN CORPUSCULAR HEMOGLOBIN 31.1 pg (27.0-34.0); MEAN CORPUSCULAR HGB CONC 34.1 g/dL (33.0-35.0); MEAN CORPUSCULAR VOLUME 91.3 fL (80.0-100.0); MEAN PLATELET VOLUME 9.1 fL (7.4-11.0); MONOCYTES # (AUTO) 0.6 x10^3/uL (0.3-0.8); MONOCYTES % (AUTO) 9.3 % (0.0-13.0); NEUTROPHILS # (AUTO) 3.5 x10^3/uL (2.2-4.8); NEUTROPHILS % (AUTO) 54.7 % (42.0-75.0); PLATELET COUNT 198 X10^3/uL (150.0-450.0); RED BLOOD COUNT 5.12 X10^6/uL (3.5-5.4); RED CELL DISTRIBUTION WIDTH 13.6 % (11.6-16.5); WHITE BLOOD COUNT 6.5 X10^3/uL (3.6-10.0)
[2017-10-13 12:48] LABS: ALANINE AMINOTRANSFERASE 23 Units/L (12-78); ALBUMIN 3.7 g/dL (3.4-5.0); ALKALINE PHOSPHATASE 77 Units/L (46-116); ASPARTATE AMINO TRANSFERASE 28 Units/L (15-37); BLOOD UREA NITROGEN 9 mg/dL (7-18); CHLORIDE 100 mmol/L (98-107); CREATININE 0.99 mg/dL (0.55-1.02); SODIUM 137 mmol/L (136-145); TOTAL PROTEIN 8.2 g/dL (6.4-8.2); eGFR BLACK RACES > 60 (>60); eGFR NON BLACK RACES > 60 (>60)
--- NOTE | 2017-10-13 12:52 | RAD ---
HISTORY: Fever and shortness of breath Study: PA and lateral views of the chest. Comparison: None. Findings: The cardiomediastinal silhouette is normal. No focal consolidations, pleural effusions or pneumothora x. Osseous structures demonstrate no acute abnormality. IMPRESSION: 1. No acute cardiopulmonary process. Reported By:
[2017-10-13 13:34] LABS: ABG BASE EXCESS 1.3 mmol/L (-2.0-2.0); ABG HCO3 25.9 mmol/L (22-26)
[2017-10-13 13:45] LABS: BILIRUBIN,URINE NEGATIVE (NEGATIVE); BLOOD/HEMOGLOBIN,URINE 3+ (NEGATIVE); GLUCOSE, URINE NEGATIVE (NEGATIVE); KETONES,URINE 1+ (NEGATIVE); LEUKOCYTE ESTERASE ,URINE NEGATIVE (NEGATIVE); NITRITES,URINE NEGATIVE (NEGATIVE); PROTEIN,URINE 3+ (NEGATIVE); UROBILINOGEN,URINE NORMAL (NORMAL)
[2017-10-13 13:54] LABS: APPEARANCE,URINE SLIGHTLY HAZY (CLEAR); COLOR,URINE YELLOW (YELLOW)
[2017-10-13 13:55] LABS: AMORPHOUS SEDIMENT,UR TRACE /HPF (NEGATIVE); BACTERIA,URINE TRACE /HPF (NEGATIVE); HYALINE CASTS, URINE RARE /LPF (NEGATIVE); SQUAMOUS EPITHELIAL CELL,UR FEW /HPF (NEGATIVE)
[2017-10-13] MEDS ORDERED: ROCEPHIN VIAL 1 GM IM ONE (14:10)
[2017-10-13] MEDS ORDERED: ROCEPHIN VIAL 1 GM ONE (14:13)
== END 2017-10-13 14:41 | disposition home or self-care (01) ==
LOC: ER 11:37
DX: J44.1 Chronic obstructive pulmonary disease with (acute) exacerbation (principal); J40 Bronchitis, not specified as acute or chronic; J11.1 Influenza due to unidentified influenza virus with other respiratory manifestations; Z72.0 Tobacco use
CPT/HCPCS: 36415; 36600; 71046; 80053; 81001; 82803; 83605; 85025; 87040; 87070; 87205; 87502; 96372; 99282; 99283; J0696; J7620

== ENCOUNTER → 2017-10-21 | Outpatient (CLI) | payer OTHER, MEDICAID ==
[2017-10-13 11:31] VITALS: BP 124/76
--- NOTE | 2017-10-21 09:33 | RAD ---
Indication: Shortness of breath Exam: PA and lateral chest Comparison: 10/13/2017 Findings: The heart is normal. The pulmonary vessels are normal. The lungs are mildly hyperinflated. No consolidation or effusion is seen. The bones are intact. Impression: Stable chronic lung changes with no acute abnormality seen. Reported By:
== END ==
LOC: LAB 08:49
PROVIDERS: ATTEND Psychiatry & Neurology Neurology
DX: R06.89 Other abnormalities of breathing (principal)
CPT/HCPCS: 71046; 87070; 87205

== ENCOUNTER → 2018-01-14 | Outpatient (CLI) | payer OTHER, MEDICAID ==
--- NOTE | 2018-01-15 09:01 | MG ---
HISTORY: SCREENING Comparison: 01/01/2017 FINDINGS: Bilateral CC and MLO projections of the right and left breast were obtained. Heterogeneously dense f ibroglandular tissue is seen to be present. No significant architectural distortion, mass or cluster ed microcalcifications can be observed to suggest malignancy. No skin thickening or nipple retractio n is appreciated. No pathological lymphadenopathy can be identified. IMPRESSION: NO RADIOGRAPHIC EVIDENCE OF MALIGNANCY. ACR CATEGORY: 1 - NEGATIVE EXAM. FOLLOW-UP EXAM 1 YEAR. Diagnostic CAD was utilized and reviewed. * 0 (ZERO) - ASSESSMENT INCOMPLETE; ADDITIONAL IMAGING IS NEEDED. * 1/ (ONE) - NEGATIVE. * 2/II (TWO) - BENIGN FINDINGS. * 3/III (THREE) - PROBABLY BENIGN FINDING; SHORT INTERVAL FOLLOW-UP SUGGESTED. * 4/IV (FOUR) - SUSPICIOUS ABNORMALITY; BIOPSY SHOULD BE CONSIDERED. * 5/V - HIGHLY SUSPICIOUS OF MALIGNANCY; BIOPSY SHOULD BE PERFORMED. A NEGATIVE X-RAY REPORT SHOULD NOT DELAY BIOPSY IF A DOMINANT OR CLINICALLY SUSPICIOUS MASS IS PRESENT; 4 TO 8 PERCENT OF CANCERS ARE NOT IDENTIFIED BY X-RAY. A NEGA TIVE REPORT MAY REINFORCE THE CLINICAL IMPRESSION. ADENOSIS AND DENSE BREASTS MAY OBSCURE AN UNDERLY ING NEOPLASM. Reported By:
== END ==
LOC: RAD 13:44
PROVIDERS: ATTEND Nurse Practitioner Family
DX: Z12.31 Encounter for screening mammogram for malignant neoplasm of breast (principal)
CPT/HCPCS: 77067

== ENCOUNTER 2018-01-19 07:51 | Day surgery (SDC) | payer OTHER, MEDICAID ==
[2018-01-19] MEDS ORDERED: NS 1000 ML 1,000 ML ONE (08:15)
[2018-01-19] MEDS ORDERED: DIPRIVAN VIAL 20 ML ONE (09:13)
[2018-01-19 10:18] VITALS: BP 151/78
== END 2018-01-19 10:25 | disposition home or self-care (01) ==
LOC: SURG1 07:51
PROVIDERS: ATTEND Surgery
PROC: 0DBP8ZX Excision of Rectum, Via Natural or Artificial Opening Endoscopic, Diagnostic (ICD-10-PCS; principal; 2018-01-19 11:15)
PROC: 0DJD8ZZ Inspection of Lower Intestinal Tract, Via Natural or Artificial Opening Endoscopic (ICD-10-PCS; principal; 2018-01-19 11:15)
PROC: 0DBN8ZX Excision of Sigmoid Colon, Via Natural or Artificial Opening Endoscopic, Diagnostic (ICD-10-PCS; principal; 2018-01-19 11:15)
DX: K62.5 Hemorrhage of anus and rectum (principal); K59.09 Other constipation; R10.84 Generalized abdominal pain; K64.0 First degree hemorrhoids; K62.1 Rectal polyp; K52.89 Other specified noninfective gastroenteritis and colitis
CPT/HCPCS: A4217; J3490

== ENCOUNTER 2018-01-24 06:31 | Emergency (ER) | payer OTHER, MEDICAID ==
[2018-01-24 06:43] VITALS: BMI 23.8
[2018-01-24] MEDS ORDERED: TORADOL 30 MG VIAL IVP STA (06:58)
[2018-01-24] MEDS ORDERED: ADACEL TDaP IM ONE ×2 (06:59→07:04)
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
[2018-01-24] MEDS ORDERED: NS 1000 ML 1,000 ML IV SCH ×2 (07:00→09:00)
[2018-01-24] MEDS ORDERED: TORADOL 30 MG VIAL ONE (07:04)
[2018-01-24] MEDS ORDERED: NS 1000 ML 1,000 ML ONE ×2 (07:04→09:49)
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
[2018-01-24 08:42] LABS: BASOPHILS # (AUTO) 0.1 X10^3/uL (0.0-0.1); BASOPHILS % (AUTO) 0.6 % (0.2-1.0); EOSINOPHILS % (AUTO) 0.1 % (0.9-2.9); HEMATOCRIT 44.4 % (36.0-47.0); HEMOGLOBIN 15.1 g/dL (12.0-16.0); LYMPHOCYTES # (AUTO) 1.7 X10^3/uL (1.3-2.9); LYMPHOCYTES % (AUTO) 11.9 % (21.0-51.0); MEAN CORPUSCULAR HEMOGLOBIN 31.4 pg (27.0-34.0); MEAN CORPUSCULAR VOLUME 92.4 fL (80.0-100.0); MEAN PLATELET VOLUME 8.8 fL (7.4-11.0); MONOCYTES # (AUTO) 0.7 x10^3/uL (0.3-0.8); MONOCYTES % (AUTO) 4.8 % (0.0-13.0); NEUTROPHILS % (AUTO) 82.6 % (42.0-75.0); PLATELET COUNT 235 X10^3/uL (150.0-450.0); RED BLOOD COUNT 4.81 X10^6/uL (3.5-5.4); RED CELL DISTRIBUTION WIDTH 14.6 % (11.6-16.5); WHITE BLOOD COUNT 14.5 X10^3/uL (3.6-10.0)
[2018-01-24] MEDS ORDERED: DUONEB 0.5 MG/3 MG NEB ONE (08:42)
[2018-01-24] MEDS ORDERED: MORPHINE SULFATE INJ 2 MG INJ IVP ONE (08:43)
[2018-01-24] MEDS ORDERED: SOLU-Medrol 125 MG VIAL IVP ONE (08:43)
[2018-01-24 08:46] LABS: BILIRUBIN,URINE NEGATIVE (NEGATIVE); BLOOD/HEMOGLOBIN,URINE 5+ (NEGATIVE); GLUCOSE, URINE NEGATIVE (NEGATIVE); KETONES,URINE NEGATIVE (NEGATIVE); LEUKOCYTE ESTERASE ,URINE NEGATIVE (NEGATIVE); NITRITES,URINE NEGATIVE (NEGATIVE); PROTEIN,URINE 2+ (NEGATIVE); UROBILINOGEN,URINE NORMAL (NORMAL)
[2018-01-24 08:47] LABS: APPEARANCE,URINE HAZY (CLEAR); COLOR,URINE YELLOW (YELLOW)
[2018-01-24 08:57] LABS: BACTERIA,URINE TRACE /HPF (NEGATIVE); MUCUS,URINE RARE /HPF (NEGATIVE); SQUAMOUS EPITHELIAL CELL,UR MODERATE /HPF (NEGATIVE)
[2018-01-24] MEDS ORDERED: SOLU-Medrol 125 MG VIAL ONE (08:58)
[2018-01-24] MEDS ORDERED: MORPHINE SULFATE INJ 2 MG INJ ONE (08:58)
[2018-01-24 09:20] LABS: ALANINE AMINOTRANSFERASE 64 Units/L (12-78); ALBUMIN 3.9 g/dL (3.4-5.0); ALKALINE PHOSPHATASE 97 Units/L (46-116); ASPARTATE AMINO TRANSFERASE 71 Units/L (15-37); BLOOD UREA NITROGEN 15 mg/dL (7-18); CALCIUM 8.7 mg/dL (8.5-10.1); CARBON DIOXIDE 24.5 mmol/L (21-32); CHLORIDE 101 mmol/L (98-107); COR NA(FOR HYPERGLY) 138 mmol/L (136-145); CREATININE 0.84 mg/dL (0.55-1.02); MAGNESIUM 1.4 mg/dL (1.7-2.9); SODIUM 137 mmol/L (136-145); TOTAL PROTEIN 7.7 g/dL (6.4-8.2); TROPONIN I < 0.02 ng/mL (0-1.5); eGFR BLACK RACES > 60 (>60); eGFR NON BLACK RACES > 60 (>60)
[2018-01-24 09:22] LABS: CKMB % 2.8 % (<4); CREATINE KINASE 1851 Units/L (26-192); CREATINE KINASE MB 52.2 ng/mL (0-4.0)
[2018-01-24 09:35] VITALS: BP 196/91
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
== END 2018-01-24 10:00 | disposition short-term general hospital (02) ==
LOC: ER 06:31
DX: S27.321A Contusion of lung, unilateral, initial encounter (principal); S22.31XA Fracture of one rib, right side, initial encounter for closed fracture; Z04.1 Encounter for examination and observation following transport accident; J93.9 Pneumothorax, unspecified; M50.322 Other cervical disc degeneration at C5-C6 level; M51.36 Other intervertebral disc degeneration, lumbar region; M48.061 Spinal stenosis, lumbar region without neurogenic claudication; J44.1 Chronic obstructive pulmonary disease with (acute) exacerbation; R74.8 Abnormal levels of other serum enzymes; R10.84 Generalized abdominal pain; R94.31 Abnormal electrocardiogram [ECG] [EKG]; V89.2XXA Person injured in unspecified motor-vehicle accident, traffic, initial encounter; G31.9 Degenerative disease of nervous system, unspecified
CPT/HCPCS: 36415; 51702; 70450; 71045; 71250; 72125; 72131; 74176; 80053; 81001; 82550; 82553; 83735; 84484; 85025; 85610; 85730; 90471; 93005; 93010; 96365; 96367; 96374; 96375; 99285; 99291; A4222; J1885; J2270; J2930

== ENCOUNTER 2023-06-03 00:45 | Observation (INO) ==
--- NOTE | 2023-06-03 00:58 | DR.SOBA ---
HPI Time Seen Time Seen by Provider: 06/03/23 00:57 HPI Comment HPI Comment: Patient is 58yr old female in er with COVID-19 Coronavirus risk:travel/contact w/high risk person: No Has patient experienced Coronavirus symptoms: No Reviewed Nurses Notes Reviewed: Yes PMH PMH Past Medical History: COPD, GERD and Hypertension Past Surgical History: Yes Surgical History: Hysterectomy Family History Family Medical History: Diabetes Mellitus and Hypertension Social History Do you use any recreational Drugs:: No Travel Risk Coronavirus risk:travel/contact w/high risk person: No Has patient experienced Coronavirus symptoms: No ROS Review of Systems Constitutional: Weakness and Fatigue; negative Fever Eyes: No Symptoms Reported; negative Blurred Vision ENTM: Nose Congestion; negative Nose Discharge or Throat Pain Respiratoy: No Symptoms Reported, Moist Cough and Short of Breath; negative Wheezing Cardiovascular: No Symptoms Reported; negative Chest Pain or Edema Gastrointestinal/Abdominal: negative Abdominal Pain, Diarrhea or Vomiting Genitourinary: No Symptoms Reported; negative Dysuria Neurological: Weakness; negative Headache or Dizziness Musculoskeletal: Muscle Pain Integumentary: No Symptoms Reported; negative Rash or Juandice Hematologic/Lymphatic: No Symptoms Reported; negative Easy Bruising or Swollen Glands Endocrine: No Symptoms Reported; negative Increased Thirst or Increased Urine Psychiatric: No Symptoms Reported All Other Systems: Reviewed and Negative PE Vital Signs Vitals: Vital Signs Temperature 98.8 F Pulse Rate 75 Pulse Rate 84 Pulse Rate 76 Pulse Rate 83 Pulse Rate 77 Pulse Rate 83 Pulse Rate 84 Pulse Rate 85 Pulse Rate 84 Pulse Rate 82 Respiratory Rate 61 Respiratory Rate 29 Respiratory Rate 25 Respiratory Rate 28 Respiratory Rate 33 Respiratory Rate 32 Respiratory Rate 38 Respiratory Rate 39 Respiratory Rate 22 Blood Pressure 160/74 Blood Pressure 161/71 Blood Pressure 167/70 Blood Pressure 187/84 O2 Sat by Pulse Oximetry 99 O2 Sat by Pulse Oximetry 100 O2 Sat by Pulse Oximetry 100 O2 Sat by Pulse Oximetry 99 O2 Sat by Pulse Oximetry 98 O2 Sat by Pulse Oximetry 95 O2 Sat by Pulse Oximetry 96 O2 Sat by Pulse Oximetry 96 O2 Sat by Pulse Oximetry 95 O2 Sat by Pulse Oximetry 96 General Limitations: Altered Mental Status General Appearance: Alert and In Distress Head Head Exam: Normal Inspection Eyes Eye exam: Normal Appearance; negative Scleral Icterus or Conjunctival Injection ENT ENT Exam: Normal Exam, Normal Oropharynx, Normal External Ear Exam and TM's Normal Bilaterally Neck Neck Exam: Normal Inspection and Trachea Midline; negative Tenderness Chest Chest Inspection: Symmetric Chest Wall Rise; negative Tenderness Respiratory Respiratory Exam: Accessory Muscle Use and Respiratory Distress; negative Chest Wall Tenderness Cardiovascular Cardiovascular Exam: Regular Rate, Normal Rhythm and Normal Heart Sounds; negative Systolic Murmur or Diastolic Murmur Abdominal Exam Abdominal Exam: Normal Inspection, Normal Bowel Sounds and Soft; negative Tenderness Extremities Extremities Exam: Normal Inspection and Normal Capillary Refill; negative Ten derness or Edema Back Back Exam: Normal Inspection; negative (R) CVA Tenderness or (L) CVA Tenderness Neurologic Neurological Exam: Alert and Oriented X3; negative Motor Sensory Deficit Psychiatric Psychiatric Exam: Normal Affect and Anxious Skin Skin Exam: Intact; negative Rash ROR Labs Reviewed 06/03/23 00:55 06/03/23 00:55 Laboratory: WBC 7.3 X10^3/uL (3.6-10.0) 06/03/23 00:55 RBC 4.33 X10^6/uL (3.5-5.4) 06/03/23 00:55 Hgb 13.1 g/dL (12.0-16.0) 06/03/23 00:55 Hct 39.4 % (36.0-47.0) 06/03/23 00:55 MCV 91.1 fL (80.0-100.0) 06/03/23 00:55 MCH 30.4 pg (27.0-34.0) 06/03/23 00:55 MCHC 33.3 g/dL (33.0-35.0) 06/03/23 00:55 RDW 13.0 % (11.6-16.5) 06/03/23 00:55 Plt Count 246 X10^3/uL (150.0-450.0) 06/03/23 00:55 MPV 8.6 fL (7.4-11.0) 06/03/23 00:55 Neut % (Auto) 65.8 % (42.0-75.0) 06/03/23 00:55 Lymph % (Auto) 26.2 % (21.0-51.0) 06/03/23 00:55 [place] % (Auto) 6.9 % (0.0-13.0) 06/03/23 00:55 Eos % (Auto) 0.5 % (0.9-2.9) L 06/03/23 00:55 Baso % (Auto) 0.6 % (0.2-1.0) 06/03/23 00:55 Neut # (Auto) 4.8 x10^3/uL (2.2-4.8) 06/03/23 00:55 Lymph # (Auto) 1.9 X10^3/uL (1.3-2.9) 06/03/23 00:55 [place] # (Auto) 0.5 x10^3/uL (0.3-0.8) 06/03/23 00:55 Eos # (Auto) 0.0 x10^3/uL (0.0-0.2) 06/03/23 00:55 Baso # (Auto) 0.0 X10^3/uL (0.0-0.1) 06/03/23 00:55 Absolute Nucleated RBC 0.1 /100WBC 06/03/23 00:55 D-Dimer < 0.27 ug/ml (0.0-0.57) 06/03/23 00:55 Sample Site L bra 06/03/23 01:32 ABG pH 7.310 (7.35-7.45) L 06/03/23 01:32 ABG pCO2 75.0 mmHg (35.0-45.0) H* 06/03/23 01:32 ABG pO2 53.0 mmHg (80.0-100.0) L 06/03/23 01:32 ABG HCO3 37.8 mmol/L (22-26) H* 06/03/23 01:32 ABG O2 Saturation 84.0 % (90-100) L* 06/03/23 01:32 ABG Base Excess 8.9 mmol/L (-2.0-2.0) H 06/03/23 01:32 Omar Test N/a 06/03/23 01:32 A-a Gradient 53.0 mmHg 06/03/23 01:32 FiO2 28.0 06/03/23 01:32 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 06/03/23 01:32 Sodium 137 mmol/L (136-145) 06/03/23 00:55 Corrected Sodium TNP 06/03/23 00:55 Potassium 4.0 mmol/L (3.5-5.1) 06/03/23 00:55 Chloride 95 mmol/L (98-107) L 06/03/23 00:55 Carbon Dioxide 35.6 mmol/L (21-32) H 06/03/23 00:55 BUN 11 mg/dL (7-18) 06/03/23 00:55 Creatinine 0.71 mg/dL (0.55-1.02) 06/03/23 00:55 Est GFR (MDRD) Af Amer > 60 (>60) 06/03/23 00:55 Est GFR (MDRD) Non-Af > 60 (>60) 06/03/23 00:55 Glucose 107 mg/dL (65-99) H 06/03/23 00:55 Calcium 9.2 mg/dL (8.5-10.1) 06/03/23 00:55 Corrected Calcium TNP 06/03/23 00:55 Total Bilirubin 0.30 mg/dL (0.2-1.0) 06/03/23 00:55 AST 15 Units/L (15-37) 06/03/23 00:55 ALT 19 Units/L (12-78) 06/03/23 00:55 Alkaline Phosphatase 79 Units/L (46-116) 06/03/23 00:55 Creatine Kinase 68 Units/L (26-192) 06/03/23 00:55 Troponin I High Sens 36.8 ng/L (4.0-60.0) 06/03/23 00:55 B-Natriuretic Peptide 77.6 pg/mL (0-79) 06/03/23 00:55 Total Protein 8.1 g/dL (6.4-8.2) 06/03/23 00:55 Albumin 3.9 g/dL (3.4-5.0) 06/03/23 00:55 Globulin 4.2 g/dL (2.5-4.5) 06/03/23 00:55 Albumin/Globulin Ratio 0.9 Ratio (1.1-2.1) L 06/03/23 00:55 SARS-CoV-2 (PCR) Negative (NEGATIVE) 06/03/23 01:02 Influenza Type A (PCR) Negative (NEGATIVE) 06/03/23 01:02 Influenza Type B (PCR) Negative (NEGATIVE) 06/03/23 01:02 RSV (PCR) Negative (NEGATIVE) 06/03/23 01:02 XRAY XRAY Interpreted by: Self EKG Rate: 82 [place]: Normal Rhythm: NSR Block: RBBB Hypertrophy: None ST: Nonsp Opioid Opioid Risk Tool Age ([place] box if 16-45): No History of Preadolescent Sexual Abuse: No Total: 0 Total Score Risk Category: Low Risk Copyright: [facility] predicting aberrant behaviors Discharge Plan Diagnosis Discharge Problem: COPD with acute exacerbation, Bronchitis, Hypercapnia, Hypoxia Discharge Plan Patient Disposition: HOME, SELF-CARE Condition: Stable Prescriptions: No Action loratadine 10 mg tablet 10 mg PO QDAY MDD 1 90 Days Qty: 90 0RF cyanocobalamin (vitamin B-12) 1,000 mcg/mL solution 1,000 mcg IM QMONTH MDD 1 monthly Qty: 1 3RF prednisone 5 mg tablet 5 mg PO BID 7 Days Qty: 14 0RF amlodipine 5 mg tablet 5 mg PO QDAY Qty: 90 1RF montelukast 10 mg tablet 10 mg PO QDAY Qty: 90 0RF oxybutynin chloride 10 mg tablet extended release 24hr 10 mg PO QDAY Qty: 90 0RF folic acid 1 mg tablet 1 mg PO QDAY Qty: 90 0RF ibuprofen 800 mg tablet 800 mg PO TID PRN (Reason: for pain) Qty: 270 2RF albuterol sulfate [ProAir HFA] 90 mcg/actuation HFA aerosol inhaler 90 mcg inhalation Q6H PRN pantoprazole 20 mg tablet,delayed release (DR/EC) 20 mg PO QDAY 90 Days Qty: 90 1RF ipratropium-albuterol 0.5 mg-3 mg(2.5 mg base)/3 mL solution for nebulization 3 ml inhalation TID MDD 3 PRN (Reason: wheezing) 30 Days Qty: 90 0RF Depo-Estradiol 5 mg/mL oil 5 mg IM MONTHLY MDD 1 inj monthly 150 Days Qty: 5 0RF Trelegy Ellipta 100-62.5-25 mcg blister with device 1 inh inhalation Q24H MDD 1 inh 30 Days Qty: 60 0RF alprazolam 0.5 mg tablet 0.5 mg PO BID MDD 2 PRN (Reason: anxiety) 30 Days Qty: 60 2RF zolpidem 10 mg tablet 10 mg PO QHS MDD 1 PRN (Reason: sleep) 30 Days Qty: 30 2RF gabapentin 100 mg capsule 100 mg PO .COMPLEX MDD 2 20 Days Qty: 30 0RF Rx Instructions: 100 mg orally Take 2 @ HS for 10 days then decrease to 1 cap for 10 days.; Taper to d/c due to nervousness metoprolol tartrate 100 mg tablet 100 mg PO BID oxybutynin chloride 10 mg tablet extended release 24hr 10 mg PO QDAY ibuprofen 800 mg tablet 800 mg PO TID metoprolol tartrate 100 mg tablet 100 mg PO BID amlodipine 5 mg tablet 5 mg PO QDAY pantoprazole 20 mg tablet,delayed release (DR/EC) 20 mg PO QDAY alprazolam 0.5 mg tablet 0.5 mg PO BID PRN gabapentin 300 mg capsule 300 mg PO TID montelukast 10 mg tablet 10 mg PO QDAY gabapentin 100 mg capsule 100 mg PO QHS zolpidem 10 mg tablet 10 mg PO QPM PRN albuterol sulfate 90 mcg/actuation HFA aerosol inhaler 2 puff inhalation Q4H PRN Trelegy Ellipta 100-62.5-25 mcg blister with device 1 ea inhalation QDAY Health Concerns: Post Hospitalization: new medications and changes needed to prevent readmission or further decline. Pt educated and given instructions on all concerns. Plan of Treatment: Continue with present treatment and follow up plan. Pt is to keep follow up appointment as instructed and take medications as ordered. Orders to Discharge Patient Discharge Orders: Transfer (Routine); Ordered 06/03/23 Ordered By: KLAUS BOTELLO Follow ups/Referrals Follow ups/Referrals: IZABELLA VIRAMONTES [Primary Care Provider] - 3 days Instructions Stand Alone Forms: Post Hospital Follow Up Care
[2023-06-03 01:05] LABS: BASOPHILS % (AUTO) 0.6 % (0.2-1.0); EOSINOPHILS % (AUTO) 0.5 % (0.9-2.9); HEMATOCRIT 39.4 % (36.0-47.0); HEMOGLOBIN 13.1 g/dL (12.0-16.0); LYMPHOCYTES # (AUTO) 1.9 X10^3/uL (1.3-2.9); LYMPHOCYTES % (AUTO) 26.2 % (21.0-51.0); MEAN CORPUSCULAR HEMOGLOBIN 30.4 pg (27.0-34.0); MEAN CORPUSCULAR HGB CONC 33.3 g/dL (33.0-35.0); MEAN CORPUSCULAR VOLUME 91.1 fL (80.0-100.0); MEAN PLATELET VOLUME 8.6 fL (7.4-11.0); MONOCYTES # (AUTO) 0.5 x10^3/uL (0.3-0.8); MONOCYTES % (AUTO) 6.9 % (0.0-13.0); NEUTROPHILS # (AUTO) 4.8 x10^3/uL (2.2-4.8); NEUTROPHILS % (AUTO) 65.8 % (42.0-75.0); PLATELET COUNT 246 X10^3/uL (150.0-450.0); RED BLOOD COUNT 4.33 X10^6/uL (3.5-5.4); WHITE BLOOD COUNT 7.3 X10^3/uL (3.6-10.0)
--- NOTE | 2023-06-03 01:05 | EKG ---
Test Reason : SHORTNESS OF BREATH Blood Pressure : */* mmHG Vent. Rate : 82 BPM Atrial Rate : 82 BPM P-R Int : 136 ms QRS Dur : 114 ms QT Int : 406 ms P-R-T Axes : 83 86 78 degrees QTc Int : 474 ms Normal sinus rhythm Incomplete right bundle branch block Borderline ECG When compared with ECG of 10-DEC-2022 16:36, No significant change was found Confirmed by Brandon Lujan ([id number]) on 06/03/2023 8:01:31 AM Referred By: Confirmed By: Brandon Lujan
[2023-06-03 01:07] VITALS: BMI 19.5
[2023-06-03 01:21] LABS: BLOOD UREA NITROGEN 11 mg/dL (7-18); CALCIUM 9.2 mg/dL (8.5-10.1); CARBON DIOXIDE 35.6 mmol/L (21-32); CHLORIDE 95 mmol/L (98-107); CREATININE 0.71 mg/dL (0.55-1.02); GLUCOSE 107 mg/dL (65-99); SODIUM 137 mmol/L (136-145); eGFR NON BLACK RACES > 60 (>60)
[2023-06-03] MEDS ORDERED: DUONEB 0.5 MG/3 MG (3 mL) NEB ONE ×2 (01:23→01:24)
[2023-06-03] MEDS ORDERED: SOLU-Medrol 125 MG VIAL IVP ONE (01:25)
[2023-06-03] MEDS ORDERED: SOLU-Medrol 125 MG VIAL ONE (01:27)
[2023-06-03 01:36] LABS: CREATINE KINASE 68 Units/L (26-192)
[2023-06-03 01:37] LABS: ABG BASE EXCESS 8.9 mmol/L (-2.0-2.0)
--- NOTE | 2023-06-03 01:37 | RAD ---
EXAM:CHEST, 1 VIEWHISTORY:EMS CALLED OUT TO PT FOR DECREASED 02 SATS. UPON ARRIVAL PT WAS FOUND TO BE 46% ON HER HOME 02 CONCENTRATOR. SHORTNESS OF BREATH; COPD, ANEMIA, ASTHMA, CAD, MIGRAINES, GERD, HTN, SEIZURES SX: HYSTCOMPARISON:Frontal chest radiograph December 10, 2022TECHNIQUE:Portable chest radiographFINDINGS:The lungs are markedly hyperinflated but grossly clear. The trachea is midline. The heart size is normal. No pneumothorax.IMPRESSION:Pulmonary hyperinflation suggesting COPD without complicating pneumonia.THIS IS AN ELECTRONICALLY VERIFIED FINAL REPORT06/03/2023 1:34 AM - Electronically signed by Toney Leavitt MD
[2023-06-03 01:39] LABS: ABG HCO3 37.8 mmol/L (22-26)
[2023-06-03] MEDS ORDERED: ROCEPHIN VIAL 1 GRAM 1 G in NS 100 ML IV 100 ML IV ONE (02:04)
[2023-06-03] MEDS ORDERED: NS 100 ML IV 100 ML ONE ×2 (02:06→05:55)
[2023-06-03] MEDS ORDERED: ROCEPHIN VIAL 1 GRAM ONE (02:06)
[2023-06-03 02:14] LABS: ALANINE AMINOTRANSFERASE 19 Units/L (12-78); ALBUMIN 3.9 g/dL (3.4-5.0); ALKALINE PHOSPHATASE 79 Units/L (46-116); ASPARTATE AMINO TRANSFERASE 15 Units/L (15-37); TOTAL PROTEIN 8.1 g/dL (6.4-8.2)
[2023-06-03] MEDS ORDERED: NS 1,000 ML IV 1,000 ML IV SCH (03:23)
[2023-06-03 05:38] LABS: BASOPHILS % (AUTO) 0.5 % (0.2-1.0); EOSINOPHILS % (AUTO) 0.1 % (0.9-2.9); HEMATOCRIT 38.1 % (36.0-47.0); HEMOGLOBIN 12.7 g/dL (12.0-16.0); LYMPHOCYTES # (AUTO) 0.6 X10^3/uL (1.3-2.9); LYMPHOCYTES % (AUTO) 11.2 % (21.0-51.0); MEAN CORPUSCULAR HEMOGLOBIN 30.1 pg (27.0-34.0); MEAN CORPUSCULAR HGB CONC 33.2 g/dL (33.0-35.0); MEAN CORPUSCULAR VOLUME 90.6 fL (80.0-100.0); MEAN PLATELET VOLUME 9.8 fL (7.4-11.0); MONOCYTES # (AUTO) 0 x10^3/uL (0.3-0.8); MONOCYTES % (AUTO) 0.8 % (0.0-13.0); NEUTROPHILS % (AUTO) 87.4 % (42.0-75.0); PLATELET COUNT 220 X10^3/uL (150.0-450.0); RED CELL DISTRIBUTION WIDTH 13.1 % (11.6-16.5); WHITE BLOOD COUNT 5.8 X10^3/uL (3.6-10.0)
[2023-06-03 05:43] LABS: BLOOD UREA NITROGEN 10 mg/dL (7-18); CARBON DIOXIDE 34.1 mmol/L (21-32); CHLORIDE 95 mmol/L (98-107); COR NA(FOR HYPERGLY) 137 mmol/L (136-145); CREATININE 0.58 mg/dL (0.55-1.02); GLUCOSE 113 mg/dL (65-99); POTASSIUM 4.1 mmol/L (3.5-5.1); SODIUM 137 mmol/L (136-145); eGFR NON BLACK RACES > 60 (>60)
[2023-06-03] MEDS ORDERED: FORTAZ or TAZICEF VIAL INJ ONE (05:54)
[2023-06-03] MEDS: DUONEB 0.5 MG/3 MG (3 mL) NEB SCH ×4 (05:57→18:47)
[2023-06-03] MEDS ORDERED: FORTAZ or TAZICEF VIAL INJ 1 G in NS 100 ML IV + SPIKE MINIBAG* 100 ML IV SCH (06:00)
[2023-06-03] MEDS: FORTAZ or TAZICEF VIAL INJ 1 G in NS 100 ML IV 100 ML IV SCH ×3 (06:21→22:47)
--- NOTE | 2023-06-03 07:02 | EKG ---
Test Reason : SHORTNESS OF BREATH Blood Pressure : */* mmHG Vent. Rate : 70 BPM Atrial Rate : 70 BPM P-R Int : 118 ms QRS Dur : 112 ms QT Int : 428 ms P-R-T Axes : 80 82 80 degrees QTc Int : 462 ms Normal sinus rhythm Incomplete right bundle branch block Borderline ECG When compared with ECG of 03-JUN-2023 01:03, (Unconfirmed) No significant change was found Confirmed by Brandon Lujan ([id number]) on 06/03/2023 8:00:39 AM Referred By: Confirmed By: Brandon Lujan
[2023-06-03] MEDS: PULMICORT NEB TX 0.5 MG NEB SCH ×2 (09:12→20:57)
[2023-06-03] MEDS: MILK OF MAGNESIA PO SCH (09:26)
[2023-06-03] MEDS: VSL#3 PO SCH (09:26)
[2023-06-03] MEDS ORDERED: XANAX PO PRN (10:05)
[2023-06-03] MEDS ORDERED: AMBIEN PO PRN (10:08)
[2023-06-03] MEDS: LOVENOX INJ 40 MG SYR SC SCH (10:30)
[2023-06-03] MEDS: LOPRESSOR TAB 50 MG PO SCH ×2 (12:05→20:46)
[2023-06-03] MEDS: OXYBUTYNIN CHLORIDE ER PO SCH (12:06)
[2023-06-03] MEDS: PROTONIX TAB 40 MG PO SCH (12:06)
[2023-06-03] MEDS: NORVASC TAB 5 MG PO SCH (12:06)
[2023-06-03] MEDS: NEURONTIN CAP 300 MG PO SCH ×2 (13:31→22:47)
--- NOTE | 2023-06-03 14:22 | EKG ---
Test Reason : SHORTNESS OF BREATH Blood Pressure : */* mmHG Vent. Rate : 65 BPM Atrial Rate : 65 BPM P-R Int : 116 ms QRS Dur : 108 ms QT Int : 446 ms P-R-T Axes : 90 87 68 degrees QTc Int : 463 ms Normal sinus rhythm Incomplete right bundle branch block Borderline ECG When compared with ECG of 03-JUN-2023 06:50, No significant change was found Confirmed by Brandon Lujan ([id number]) on 06/04/2023 8:05:22 AM Referred By: Confirmed By: Brandon Lujan
[2023-06-03] MEDS: MOTRIN TAB 800 MG PO PRN ×2 (16:11→23:00)
[2023-06-03] MEDS ORDERED: NEURONTIN CAP 100 MG PO SCH (21:00)
[2023-06-03] MEDS ORDERED: SINGULAIR TAB 10 MG PO SCH (21:00)
[2023-06-03] MEDS ORDERED: COLACE CAP 100 MG PO SCH (21:00)
[2023-06-04] MEDS: FORTAZ or TAZICEF VIAL INJ 1 G in NS 100 ML IV 100 ML IV SCH (05:12)
[2023-06-04] MEDS: MOTRIN TAB 800 MG PO PRN (05:16)
[2023-06-04] MEDS: NEURONTIN CAP 300 MG PO SCH (05:17)
[2023-06-04] MEDS: DUONEB 0.5 MG/3 MG (3 mL) NEB SCH ×2 (06:20)
--- NOTE | 2023-06-04 07:42 | DR.H&P ---
H&P History & Physical for Day of: H&P Date: 06/03/23 Chief Complaint Chief Complaint: Shortness of breath Cough, weakness Allergies Allergies Allergy/AdvReac Type Severity Reaction Status Date / Time ASHLEY Inhibitors Allergy Unknown Cough Verified 06/03/23 01:07 History of Present Illness History of Present Illness: Patient is a 58-year-old female past medical history of COPD, presenting with gradual worsening of shortness of breath. She also reports productive sputum that is white in color. She reports these symptoms for the past week and has been getting worse. Denies fevers, chills. Labs/imaging: WBC 5.8, hemoglobin 12.7, platelets 220, sodium 137, potassium 4.1, creatinine 0.58, glucose 113, D-dimer negative, ABG pH 7.31/CO2 75/O2 53/bicarb 37/O2 sat 84 on FiO2 28. RSV/flu/COVID-negative. Troponin negative. Patient was admitted for acute COPD exacerbation. She was started on antibiotics IV Fortaz, steroids Solu-Medrol 80mg every 8 hours, scheduled bronchodilators, supplemental oxygen. Pt is currently on 3L nasal cannula, wean as tolerated. Ho me baseline oxygen between 2-3L. Home medicines were restarted. Continue to closely monitor and follow-up labs in the morning. Past Medical History Past Medical History: COPD, GERD and Hypertension Past Surgical History Surgical History: Hysterectomy Family History Family Medical History: Cancer and Hypertension Social History Does patient currently use any type of tobacco product: No Have you used tobacco products in the last 12 months: Yes Type of Tobacco Use: Cigarettes Alcohol Use: None Drug Use: Prescription Drugs Medications Home Medications: Home Medications Medication Instructions Recorded Confirmed Type albuterol sulfate 90 mcg/actuation 2 puff inhalation Q4H PRN 06/03/23 06/03/23 History aerosol inhaler alprazolam 0.5 mg tablet 0.5 mg PO BID PRN 06/03/23 06/03/23 History amlodipine 5 mg tablet 5 mg PO QDAY 06/03/23 06/03/23 History fluticasone fur. 100 mcg-umeclid 1 ea inhalation QDAY 06/03/23 06/03/23 History 62.5 mcg-vilant 25 mcg inhalat.powder (Trelegy Ellipta) gabapentin 100 mg capsule 100 mg PO QHS 06/03/23 06/03/23 History gabapentin 300 mg capsule 300 mg PO TID 06/03/23 06/03/23 History ibuprofen 800 mg tablet 800 mg PO TID 06/03/23 06/03/23 History metoprolol tartrate 100 mg tablet 100 mg PO BID 06/03/23 06/03/23 History montelukast 10 mg tablet 10 mg PO QDAY 06/03/23 06/03/23 History oxybutynin chloride 10 mg 10 mg PO QDAY 06/03/23 06/03/23 History tablet,extended release 24 hr pantoprazole 20 mg tablet,delayed 20 mg PO QDAY 06/03/23 06/03/23 History release zolpidem 10 mg tablet 10 mg PO QPM PRN 06/03/23 06/03/23 History Labs 06/03/23 04:59 06/03/23 04:59 Labs: Laboratory WBC 5.8 X10^3/uL (3.6-10.0) 06/03/23 04:59 RBC 4.20 X10^6/uL (3.5-5.4) 06/03/23 04:59 Hgb 12.7 g/dL (12.0-16.0) 06/03/23 04:59 Hct 38.1 % (36.0-47.0) 06/03/23 04:59 MCV 90.6 fL (80.0-100.0) 06/03/23 04:59 MCH 30.1 pg (27.0-34.0) 06/03/23 04:59 MCHC 33.2 g/dL (33.0-35.0) 06/03/23 04:59 RDW 13.1 % (11.6-16.5) 06/03/23 04:59 Plt Count 220 X10^3/uL (150.0-450.0) 06/03/23 04:59 MPV 9.8 fL (7.4-11.0) 06/03/23 04:59 Neut % (Auto) 87.4 % (42.0-75.0) H 06/03/23 04:59 Lymph % (Auto) 11.2 % (21.0-51.0) L 06/03/23 04:59 [place] % (Auto) 0.8 % (0.0-13.0) 06/03/23 04:59 Eos % (Auto) 0.1 % (0.9-2.9) L 06/03/23 04:59 Baso % (Auto) 0.5 % (0.2-1.0) 06/03/23 04:59 Neut # (Auto) 5.0 x10^3/uL (2.2-4.8) H 06/03/23 04:59 Lymph # (Auto) 0.6 X10^3/uL (1.3-2.9) L 06/03/23 04:59 [place] # (Auto) 0 x10^3/uL (0.3-0.8) L 06/03/23 04:59 Eos # (Auto) 0.0 x10^3/uL (0.0-0.2) 06/03/23 04:59 Baso # (Auto) 0.0 X10^3/uL (0.0-0.1) 06/03/23 04:59 Absolute Nucleated RBC 0.1 /100WBC 06/03/23 04:59 D-Dimer < 0.27 ug/ml (0.0-0.57) 06/03/23 00:55 Sample Site L bra 06/03/23 01:32 ABG pH 7.310 (7.35-7.45) L 06/03/23 01:32 ABG pCO2 75.0 mmHg (35.0-45.0) H* 06/03/23 01:32 ABG pO2 53.0 mmHg (80.0-100.0) L 06/03/23 01:32 ABG HCO3 37.8 mmol/L (22-26) H* 06/03/23 01:32 ABG O2 Saturation 84.0 % (90-100) L* 06/03/23 01:32 ABG Base Excess 8.9 mmol/L (-2.0-2.0) H 06/03/23 01:32 Omar Test N/a 06/03/23 01:32 A-a Gradient 53.0 mmHg 06/03/23 01:32 FiO2 28.0 06/03/23 01:32 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 06/03/23 01:32 Sodium 137 mmol/L (136-145) 06/03/23 04:59 Corrected Sodium 137 mmol/L (136-145) 06/03/23 04:59 Potassium 4.1 mmol/L (3.5-5.1) 06/03/23 04:59 Chloride 95 mmol/L (98-107) L 06/03/23 04:59 Carbon Dioxide 34.1 mmol/L (21-32) H 06/03/23 04:59 BUN 10 mg/dL (7-18) 06/03/23 04:59 Creatinine 0.58 mg/dL (0.55-1.02) 06/03/23 04:59 Est GFR (MDRD) Af Amer > 60 (>60) 06/03/23 04:59 Est GFR (MDRD) Non-Af > 60 (>60) 06/03/23 04:59 Glucose 113 mg/dL (65-99) H 06/03/23 04:59 Calcium 9.0 mg/dL (8.5-10.1) 06/03/23 04:59 Corrected Calcium TNP 06/03/23 00:55 Total Bilirubin 0.30 mg/dL (0.2-1.0) 06/03/23 00:55 AST 15 Units/L (15-37) 06/03/23 00:55 ALT 19 Units/L (12-78) 06/03/23 00:55 Alkaline Phosphatase 79 Units/L (46-116) 06/03/23 00:55 Creatine Kinase 68 Units/L (26-192) 06/03/23 00:55 Troponin I High Sens 36.8 ng/L (4.0-60.0) 06/03/23 00:55 B-Natriuretic Peptide 77.6 pg/mL (0-79) 06/03/23 00:55 Total Protein 8.1 g/dL (6.4-8.2) 06/03/23 00:55 Albumin 3.9 g/dL (3.4-5.0) 06/03/23 00:55 Globulin 4.2 g/dL (2.5-4.5) 06/03/23 00:55 Albumin/Globulin Ratio 0.9 Ratio (1.1-2.1) L 06/03/23 00:55 SARS-CoV-2 (PCR) Negative (NEGATIVE) 06/03/23 01:02 Influenza Type A (PCR) Negative (NEGATIVE) 06/03/23 01:02 Influenza Type B (PCR) Negative (NEGATIVE) 06/03/23 01:02 RSV (PCR) Negative (NEGATIVE) 06/03/23 01:02 Review of Systems Constitutional: No Symptoms Reported Eyes: No Symptoms Reported ENT: No Symptoms Reported Respiratory: Cough, Shortness of Breath and Wheezing Cardiovascular: No Symptoms Reported Gastrointestinal: No Symptoms Reported Genitourinary: No Symptoms Reported Musculoskeletal: No Symptoms Reported Skin: No Symptoms Reported Neurological: No Symptoms Reported Physical Exam Vital Signs: Vital Signs Temperature 98.2 F Temperature 98 F Pulse Rate [Left Brachial] 60 Pulse Rate [Left Brachial] 64 Respiratory Rate 22 Respiratory Rate 22 Respiratory Rate 20 Respiratory Rate 22 Respiratory Rate 20 Blood Pressure [Left Arm] 116/50 Blood Pressure [Left Arm] 126/60 O2 Sat by Pulse Oximetry 100 O2 Sat by Pulse Oximetry 100 Vitals 06/04/23 05:16 06/04/23 04:00 06/04/23 06:15 Temperature 98.2 F Temperature Source Oral Pulse Rate [Left Brachial] 60 Pulse Assessment Method [Left Brachial] Dinamap Respiratory Rate 22 20 22 Respiratory Depth Respiratory Effort Normal Non-Labored Normal Non-Labored Respiratory Pattern O2 Sat by Pulse Oximetry 100 Oxygen Delivery Method Room Air Oxygen Flow Rate FIO2% Blood Pressure [Left Arm] 116/50 Blood Pressure Mean [Left Arm] 72 Blood Pressure Source [Left Arm] Automatic Cuff Blood Pressure Position [Left Arm] Semi Quinones's Weight 06/04/23 04:19 06/04/23 06:21 06/04/23 06:00 Temperature Temperature Source Pulse Rate [Left Brachial] Pulse Assessment Method [Left Brachial] Respiratory Rate Respiratory Depth Normal Respiratory Effort Normal Respiratory Pattern Normal O2 Sat by Pulse Oximetry Oxygen Delivery Method Nasal Cannula Oxygen Flow Rate 3 FIO2% 32 Blood Pressure [Left Arm] Blood Pressure Mean [Left Arm] Blood Pressure Source [Left Arm] Blood Pressure Position [Left Arm] Weight 122 lb 6.4 oz Oriented: Normal Eyes: Normal Ear: Normal Nose: Normal Throat: Normal Respiratory: Diminished Throughout Cardiovascular: Normal : Normal Auscultation: Bowel Sounds: Normal Palpation: Normal Tenderness: Normal Skin: Normal Musculoskeletal: Normal Psychiatric: Normal Mood Description: Calm and Appropriate Affect: Normal Speech Pattern: Clear and Appropriate Assessment/Plan (1) COPD with acute exacerbation: Status: Acute Plan: IV Fortaz, IV Solu-Medrol, scheduled bronchodilators, supplemental oxygen Review H&P Reviewed: Yes Patient was examined?: Yes
[2023-06-04 08:29] LABS: BASOPHILS % (AUTO) 0.6 % (0.2-1.0); EOSINOPHILS # (AUTO) 0.1 x10^3/uL (0.0-0.2); HEMATOCRIT 35.7 % (36.0-47.0); HEMOGLOBIN 11.6 g/dL (12.0-16.0); LYMPHOCYTES # (AUTO) 2.5 X10^3/uL (1.3-2.9); LYMPHOCYTES % (AUTO) 36.4 % (21.0-51.0); MEAN CORPUSCULAR HEMOGLOBIN 29.8 pg (27.0-34.0); MEAN CORPUSCULAR HGB CONC 32.5 g/dL (33.0-35.0); MEAN CORPUSCULAR VOLUME 91.6 fL (80.0-100.0); MEAN PLATELET VOLUME 9.1 fL (7.4-11.0); MONOCYTES # (AUTO) 0.5 x10^3/uL (0.3-0.8); MONOCYTES % (AUTO) 6.8 % (0.0-13.0); NEUTROPHILS # (AUTO) 3.7 x10^3/uL (2.2-4.8); NEUTROPHILS % (AUTO) 55.2 % (42.0-75.0); PLATELET COUNT 214 X10^3/uL (150.0-450.0); RED BLOOD COUNT 3.89 X10^6/uL (3.5-5.4); RED CELL DISTRIBUTION WIDTH 13.1 % (11.6-16.5); WHITE BLOOD COUNT 6.8 X10^3/uL (3.6-10.0)
[2023-06-04 08:45] LABS: ALANINE AMINOTRANSFERASE 15 Units/L (12-78); ALBUMIN 3.2 g/dL (3.4-5.0); ALKALINE PHOSPHATASE 69 Units/L (46-116); ASPARTATE AMINO TRANSFERASE 10 Units/L (15-37); BLOOD UREA NITROGEN 12 mg/dL (7-18); CALCIUM 8.3 mg/dL (8.5-10.1); CARBON DIOXIDE 36.2 mmol/L (21-32); CHLORIDE 101 mmol/L (98-107); COR CA(FOR HYPOALB) 8.9 mg/dL (8.5-10.1); COR NA(FOR HYPERGLY) 140 mmol/L (136-145); CREATININE 0.86 mg/dL (0.55-1.02); GLUCOSE 136 mg/dL (65-99); POTASSIUM 3.3 mmol/L (3.5-5.1); SODIUM 139 mmol/L (136-145); TOTAL PROTEIN 6.7 g/dL (6.4-8.2); eGFR NON BLACK RACES > 60 (>60)
[2023-06-04] MEDS ORDERED: SOLU-Medrol 40 MG VIAL IVP SCH (09:00)
[2023-06-04] MEDS: PULMICORT NEB TX 0.5 MG NEB SCH (09:08)
[2023-06-04] MEDS: MILK OF MAGNESIA PO SCH (09:18)
[2023-06-04] MEDS: LOVENOX INJ 40 MG SYR SC SCH (09:18)
[2023-06-04] MEDS: PROTONIX TAB 40 MG PO SCH (09:19)
[2023-06-04] MEDS: NORVASC TAB 5 MG PO SCH (09:19)
[2023-06-04] MEDS: LOPRESSOR TAB 50 MG PO SCH (09:19)
[2023-06-04] MEDS: VSL#3 PO SCH (09:19)
[2023-06-04] MEDS: OXYBUTYNIN CHLORIDE ER PO SCH (10:40)
[2023-06-04 12:33] VITALS: BP 120/59; PULSE 63; RESP 18; TEMP 97.9; O2SAT 97
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
== END 2023-06-04 13:57 | disposition home or self-care (01) ==
LOC: ER 00:45 → MED/SURG 00:45
PROVIDERS: ADMIT Obstetrics & Gynecology Obstetrics; ATTEND Family Medicine
DX: R26.9 Unspecified abnormalities of gait and mobility; J44.1 Chronic obstructive pulmonary disease with (acute) exacerbation; J44.0 Chronic obstructive pulmonary disease with (acute) lower respiratory infection; I10 Essential (primary) hypertension; F17.200 Nicotine dependence, unspecified, uncomplicated; Z20.822 Contact with and (suspected) exposure to COVID-19; R26.81 Unsteadiness on feet; J20.9 Acute bronchitis, unspecified; R06.02 Shortness of breath; K21.9 Gastro-esophageal reflux disease without esophagitis

== ENCOUNTER 2023-09-26 21:32 | Inpatient (IN) ==
--- NOTE | 2023-09-26 21:43 | EKG ---
Test Reason : shortness of breath Blood Pressure : */* mmHG Vent. Rate : 85 BPM Atrial Rate : 85 BPM P-R Int : 118 ms QRS Dur : 90 ms QT Int : 362 ms P-R-T Axes : 83 94 47 degrees QTc Int : 430 ms Normal sinus rhythm Biatrial enlargement Pulmonary disease pattern Right ventricular hypertrophy with repolarization abnormality Abnormal ECG When compared with ECG of 03-JUN-2023 13:47, Non-specific change in ST segment in Inferior leads Confirmed by Brandon Lujan ([id number]) on 09/27/2023 9:16:10 AM Referred By: Confirmed By: Brandon Lujan
[2023-09-26 21:54] LABS: ABG BASE EXCESS 17.6 mmol/L (-2.0-2.0)
[2023-09-26 21:56] LABS: ABG ALLEN TEST POS; ABG HCO3 48.7 mmol/L (22-26)
--- NOTE | 2023-09-26 21:59 | DR.SOBA ---
HPI Time Seen Time Seen by Provider: 09/26/23 21:58 Primary Care Physician Primary Care Physician: GRAEME VIRAMONTES Complaints Chief Complaint Doctors Comments: Positive breath 2 to 3 days became more acute today. Does have home oxygen and she normally is on 2 L she bumped up to 5 L when EMS got there she was on 5 L and was gasping for air in the tripod posi tion. Chief Complaint:: PT TO ED VIA EMS C/O DIFFICULTY BREATHING X 4 DAYS. PT STATES SHE HAS BEEN COUGHING UP YELLOW PHLEGHM. PT IS ON 4LNC HOME O2 AND HAS COPD. Self Treatment fo Chief Complaint: BREATHING TREATMENTS AND INHALERS COVID-19 Coronavirus risk:travel/contact w/high risk person: No Has patient experienced Coronavirus symptoms: No Coronavirus symptoms experienced: Shortness of Breath Source History Provided: EMS Mode of Arrival Mode of Arrival: EMS Timing Onset of Chief Complaint: 09/22/23 PMH PMH Past Medical History: Yes Past Medical History: Asthma, COPD, Dyslipidemia, GERD and Hypertension Past Surgical History: Yes Surgical History: Hysterectomy Family History History of Family Medical Conditions: Yes Family Medical History: Cancer and Hypertension Social History Type of Tobacco Use: Cigarettes Alcohol Use: None Do you use any recreational Drugs:: No Lives With: Family Lives Where: Home Travel Risk Coronavirus risk:travel/contact w/high risk person: No Has patient experienced Coronavirus symptoms: No Coronavirus symptoms experienced: Shortness of Breath Infectious screening Have you traveled outside the country in the last 6 months?: No Isolation: Standard ROS Review of Systems Constitutional: Fatigue and Other (shortness of breath) Eyes: No Symptoms Reported ENTM: No Symptoms Reported Respiratoy: Non-Productive Cough and Short of Breath Cardiovascular: Chest Pain Gastrointestinal/Abdominal: No Symptoms Reported Genitourinary: No Symptoms Reported Neurological: No Symptoms Reported Musculoskeletal: No Symptoms Reported Integumentary: No Symptoms Reported Hematologic/Lymphatic: No Symptoms Reported Endocrine: No Symptoms Reported Psychiatric: No Symptoms Reported PE Vital Signs Vitals: Vital Signs Temperature 98.3 F Pulse Rate 84 Pulse Rate 86 Pulse Rate 88 Pulse Rate 91 Pulse Rate 91 Pulse Rate 87 Pulse Rate 93 Pulse Rate 97 Pulse Rate 99 Pulse Rate 98 Pulse Rate 92 Pulse Rate 94 Pulse Rate 102 Pulse Rate 98 Pulse Rate 97 Pulse Rate 88 Pulse Rate 87 Pulse Rate 88 Pulse Rate 87 Pulse Rate 91 Pulse Rate 97 Pulse Rate 91 Pulse Rate 90 Respiratory Rate 28 Respiratory Rate 30 Respiratory Rate 28 Respiratory Rate 27 Respiratory Rate 24 Respiratory Rate 28 Respiratory Rate 27 Respiratory Rate 28 Respiratory Rate 25 Respiratory Rate 30 Respiratory Rate 28 Respiratory Rate 29 Respiratory Rate 24 Respiratory Rate 29 Respiratory Rate 24 Respiratory Rate 29 Respiratory Rate 21 Respiratory Rate 25 Respiratory Rate 43 Respiratory Rate 24 Respiratory Rate 43 Respiratory Rate 28 Blood Pressure [Left Arm] 187/83 Blood Pressure 155/66 Blood Pressure 155/66 Blood Pressure 187/83 Blood Pressure 168/70 Blood Pressure 194/79 Blood Pressure 171/77 O2 Sat by Pulse Oximetry 95 O2 Sat by Pulse Oximetry 95 O2 Sat by Pulse Oximetry 98 O2 Sat by Pulse Oximetry 96 O2 Sat by Pulse Oximetry 98 O2 Sat by Pulse Oximetry 98 O2 Sat by Pulse Oximetry 97 O2 Sat by Pulse Oximetry 97 O2 Sat by Pulse Oximetry 96 O2 Sat by Pulse Oximetry 94 O2 Sat by Pulse Oximetry 98 O2 Sat by Pulse Oximetry 97 O2 Sat by Pulse Oximetry 98 O2 Sat by Pulse Oximetry 100 O2 Sat by Pulse Oximetry 100 O2 Sat by Pulse Oximetry 100 O2 Sat by Pulse Oximetry 99 O2 Sat by Pulse Oximetry 94 O2 Sat by Pulse Oximetry 98 O2 Sat by Pulse Oximetry 97 O2 Sat by Pulse Oximetry 98 O2 Sat by Pulse Oximetry 98 O2 Sat by Pulse Oximetry 96 General Limitations: Physical Limitation (cannot ambulate secondary to shortness of breath) Head Head Exam: Normal Inspection, Atraumatic and Normocephalic Eyes Eye exam: Normal Appearance, PERRL and EOMI ENT ENT Exam: Normal Exam, Normal Oropharynx and Normal External Ear Exam Neck Neck Exam: Normal Inspection, Full ROM and Trachea Midline Chest Chest Inspection: Normal Inspection Respiratory Respiratory Exam: Normal Lung Sounds Bilat Respiratory Exam: Bilateral: Decreased Breath Sounds Cardiovascular Cardiovascular Exam: Regular Rate Abdominal Exam Abdominal Exam: Normal Inspection Extremities Extremities Exam: Normal Inspection Back Back Exam: Normal Inspection Neurologic Neurological Exam: Motor Sensory Deficit Psychiatric Psychiatric Exam: Agitated Skin Skin Exam: Warm, Dry and Intact MDM Differential Diagnosis Differential Diagnosis: COPD, Pneumonia, Respiratory Failure and Other (covid) COURSE Treatment Treatment: This patient was getting given Solu-Medrol 125 mg IV along with 2 DuoNebs and also had a COVID respiratory panel done and she was positive for COVID. Patient's ABG also was abnormal and we initially placed her on her home 4 L of oxygen which she was satting at 97% with a history of COPD we did reduce the oxygen to 2 L/min and patient maintaining O2 sat almost of 95%. We did give her our template to do BiPAP to blow off some of the CO2 but the patient refused BiPAP. With this history of now COPD emphysema and COVID deem that the patient need to be admitted to the hospital for COVID with respiratory insufficiency. Contact was made with the [facility] to get the patient there and they stated that it would be least an hour before they could get back with us determine if she would be excepted at one of the [facility] hospital or we did wait for possible the head and neck called but we did put the patient on BiPAP and she seemed to improve somewhat so we decided to call the on-call physician which was Dr. Maldonado to see we could get him to admit this patient we were unsuccessful in contacting him initially so we did talk to one of the charge nurse Danna and she stated that we could admit the patient to [place] and use Dr. Alejo as the primary care provider since that is the one that is in charge of her primary care provider which is Emilee Dietz. Patient was admitted with an acute care admission to ICU with hypoxia COPD exacerbation COVID and sepsis. The patient was told of the intent to admit and was agreeable to the admission. [facility] Labs Reviewed Laboratory Results Reviewed?: Yes 09/26/23 21:56 09/26/23 21:56 Laboratory: 09/26/23 21:42 Sputum - Expectorated Sputum - Final WBC 12.1 X10^3/uL (3.6-10.0) H 09/26/23 21:56 RBC 3.97 X10^6/uL (3.5-5.4) 09/26/23 21:56 Hgb 11.9 g/dL (12.0-16.0) L 09/26/23 21:56 Hct 37.2 % (36.0-47.0) 09/26/23 21:56 MCV 93.7 fL (80.0-100.0) 09/26/23 21:56 MCH 29.9 pg (27.0-34.0) 09/26/23 21:56 MCHC 31.9 g/dL (33.0-35.0) L 09/26/23 21:56 RDW 13.8 % (11.6-16.5) 09/26/23 21:56 Plt Count 318 X10^3/uL (150.0-450.0) 09/26/23 21:56 MPV 8.8 fL (7.4-11.0) 09/26/23 21:56 Neut % (Auto) 76.9 % (42.0-75.0) H 09/26/23 21:56 Lymph % (Auto) 14.6 % (21.0-51.0) L 09/26/23 21:56 [place] % (Auto) 7.7 % (0.0-13.0) 09/26/23 21:56 Eos % (Auto) 0.2 % (0.9-2.9) L 09/26/23 21:56 Baso % (Auto) 0.6 % (0.2-1.0) 09/26/23 21:56 Neut # (Auto) 9.3 x10^3/uL (2.2-4.8) H 09/26/23 21:56 Lymph # (Auto) 1.8 X10^3/uL (1.3-2.9) 09/26/23 21:56 [place] # (Auto) 0.9 x10^3/uL (0.3-0.8) H 09/26/23 21:56 Eos # (Auto) 0.0 x10^3/uL (0.0-0.2) 09/26/23 21:56 Baso # (Auto) 0.1 X10^3/uL (0.0-0.1) 09/26/23 21:56 Absolute Nucleated RBC 0.1 /100WBC 09/26/23 21:56 Sample Site Rrad 09/26/23 23:15 ABG pH 7.350 (7.35-7.45) 09/26/23 23:15 ABG pCO2 81.0 mmHg (35.0-45.0) H* 09/26/23 23:15 ABG pO2 178.0 mmHg (80.0-100.0) H 09/26/23 23:15 ABG HCO3 44.7 mmol/L (22-26) H* 09/26/23 23:15 ABG O2 Saturation 100.0 % (90-100) 09/26/23 23:15 ABG Base Excess 15.4 mmol/L (-2.0-2.0) H 09/26/23 23:15 Omar Test Pos 09/26/23 23:15 A-a Gradient 6.0 mmHg 09/26/23 23:15 FiO2 40.0 09/26/23 23:15 Blood Gas Comments Bruce abg well-mtf 09/26/23 23:15 Sodium 134 mmol/L (136-145) L 09/26/23 21:56 Corrected Sodium 136 mmol/L (136-145) 09/26/23 21:56 Potassium 4.2 mmol/L (3.5-5.1) 09/26/23 21:56 Chloride 93 mmol/L (98-107) L 09/26/23 21:56 Carbon Dioxide 42.3 mmol/L (21-32) H 09/26/23 21:56 BUN 10 mg/dL (7-18) 09/26/23 21:56 Creatinine 0.65 mg/dL (0.55-1.02) 09/26/23 21:56 Est GFR (MDRD) Af Amer > 60 (>60) 09/26/23 21:56 Est GFR (MDRD) Non-Af > 60 (>60) 09/26/23 21:56 Glucose 169 mg/dL (65-99) H 09/26/23 21:56 Lactic Acid 2.7 mmol/L (0.4-2.0) H 09/27/23 00:40 Calcium 9.3 mg/dL (8.5-10.1) 09/26/23 21:56 Corrected Calcium 10.0 mg/dL (8.5-10.1) 09/26/23 21:56 Total Bilirubin 0.40 mg/dL (0.2-1.0) 09/26/23 21:56 AST 12 Units/L (15-37) L 09/26/23 21:56 ALT 18 Units/L (12-78) 09/26/23 21:56 Alkaline Phosphatase 76 Units/L (46-116) 09/26/23 21:56 Creatine Kinase 39 Units/L (26-192) 09/26/23 21:56 Troponin I High Sens 22.8 ng/L (4.0-60.0) 09/26/23 21:56 B-Natriuretic Peptide 78.2 pg/mL (0-79) 09/26/23 21:56 Total Protein 8.2 g/dL (6.4-8.2) 09/26/23 21:56 Albumin 3.1 g/dL (3.4-5.0) L 09/26/23 21:56 Globulin 5.1 g/dL (2.5-4.5) H 09/26/23 21:56 Albumin/Globulin Ratio 0.6 Ratio (1.1-2.1) L 09/26/23 21:56 Specimen Type Catherized urine 09/26/23 22:45 Urine Color Yellow (YELLOW) 09/26/23 22:45 Urine Appearance Clear (CLEAR) 09/26/23 22:45 Urine pH 6.0 (5.0 - 8.0) 09/26/23 22:[address] 1.020 (1.000-1.030) 09/26/23 22:45 Urine Protein 4+ (NEGATIVE) 09/26/23 22:45 Urine Glucose (UA) Negative (NEGATIVE) 09/26/23 22:45 Urine Ketones Negative (NEGATIVE) 09/26/23 22:45 Urine Blood 4+ (NEGATIVE) 09/26/23 22:45 Urine Nitrite Negative (NEGATIVE) 09/26/23 22:45 Urine Bilirubin Negative (NEGATIVE) 09/26/23 22:45 Urine Urobilinogen Normal (NORMAL) 09/26/23 22:45 Ur Leukocyte Esterase Negative (NEGATIVE) 09/26/23 22:45 Urine RBC 5-10 /HPF (0-3) A 09/26/23 22:45 Urine WBC 0-2 /HPF (0-5) 09/26/23 22:45 Ur Squamous Epith Cells Rare /HPF (NEGATIVE) 09/26/23 22:45 Urine Bacteria Trace /HPF (NEGATIVE) 09/26/23 22:45 Urine Mucus Rare /HPF (NEGATIVE) 09/26/23 22:45 Ur Culture Indicated? No/not indicated 09/26/23 22:45 SARS-CoV-2 (PCR) Positive (NEGATIVE) A 09/26/23 22:08 Influenza Type A (PCR) Negative (NEGATIVE) 09/26/23 22:08 Influenza Type B (PCR) Negative (NEGATIVE) 09/26/23 22:08 RSV (PCR) Negative (NEGATIVE) 01/12/24 22:08 Opioid Opioid Risk Tool Age ([place] box if 16-45): No History of Preadolescent Sexual Abuse: No Total: 0 Total Score Risk Category: Low Risk Copyright: Vladimir ZAMUDIO predicting aberrant behaviors Discharge Plan Diagnosis Discharge Problem: COVID-19, Acute respiratory insufficiency, COPD exacerbation, Sepsis, UTI (urinary tract infection) Discharge Plan Patient Disposition: 09 ADMITTED INPATIENT Condition: Stable Orders to Discharge Patient Discharge Orders: Transfer (Routine); Ordered 09/27/23 Ordered By: Markus Ramos
[2023-09-26] MEDS ORDERED: SOLU-Medrol 125 MG VIAL IVP ONE (22:02)
[2023-09-26] MEDS ORDERED: APRESOLINE INJ 20 MG VIAL IVP ONE (22:02)
[2023-09-26] MEDS: DUONEB 0.5 MG/3 MG (3 mL) NEB ONE ×2 (22:03→23:32)
[2023-09-26] MEDS ORDERED: APRESOLINE INJ 20 MG VIAL ONE (22:05)
[2023-09-26] MEDS ORDERED: SOLU-Medrol 125 MG VIAL ONE (22:05)
[2023-09-26 22:18] LABS: BASOPHILS # (AUTO) 0.1 X10^3/uL (0.0-0.1); BASOPHILS % (AUTO) 0.6 % (0.2-1.0); EOSINOPHILS % (AUTO) 0.2 % (0.9-2.9); HEMATOCRIT 37.2 % (36.0-47.0); HEMOGLOBIN 11.9 g/dL (12.0-16.0); LYMPHOCYTES # (AUTO) 1.8 X10^3/uL (1.3-2.9); LYMPHOCYTES % (AUTO) 14.6 % (21.0-51.0); MEAN CORPUSCULAR HEMOGLOBIN 29.9 pg (27.0-34.0); MEAN CORPUSCULAR HGB CONC 31.9 g/dL (33.0-35.0); MEAN CORPUSCULAR VOLUME 93.7 fL (80.0-100.0); MEAN PLATELET VOLUME 8.8 fL (7.4-11.0); MONOCYTES # (AUTO) 0.9 x10^3/uL (0.3-0.8); MONOCYTES % (AUTO) 7.7 % (0.0-13.0); NEUTROPHILS # (AUTO) 9.3 x10^3/uL (2.2-4.8); NEUTROPHILS % (AUTO) 76.9 % (42.0-75.0); PLATELET COUNT 318 X10^3/uL (150.0-450.0); RED BLOOD COUNT 3.97 X10^6/uL (3.5-5.4); RED CELL DISTRIBUTION WIDTH 13.8 % (11.6-16.5); WHITE BLOOD COUNT 12.1 X10^3/uL (3.6-10.0)
[2023-09-26 22:25] LABS: ALANINE AMINOTRANSFERASE 18 Units/L (12-78); ALBUMIN 3.1 g/dL (3.4-5.0); ALKALINE PHOSPHATASE 76 Units/L (46-116); ASPARTATE AMINO TRANSFERASE 12 Units/L (15-37); BLOOD UREA NITROGEN 10 mg/dL (7-18); CALCIUM 9.3 mg/dL (8.5-10.1); CARBON DIOXIDE 42.3 mmol/L (21-32); CHLORIDE 93 mmol/L (98-107); COR NA(FOR HYPERGLY) 136 mmol/L (136-145); CREATINE KINASE 39 Units/L (26-192); CREATININE 0.65 mg/dL (0.55-1.02); GLUCOSE 169 mg/dL (65-99); POTASSIUM 4.2 mmol/L (3.5-5.1); SODIUM 134 mmol/L (136-145); TOTAL PROTEIN 8.2 g/dL (6.4-8.2); eGFR NON BLACK RACES > 60 (>60)
--- NOTE | 2023-09-26 22:29 | RAD ---
EXAM: CHEST X-RAYHISTORY: Difficulty breathing x 4 days. Productive cough with yellow sputum.TECHNIQUE: Frontal CXR dated September 26, 2023 at 10:09 PM.COMPARISON: CXR dated June 03, 2023.FINDINGS:The heart size and mediastinum are within normal limits. There is lung parenchymal hyperinflation and hyperlucency in keeping with COPD/emphysema. There is no acute parenchymal infiltrate, pleural effusion, or pneumothorax seen. The visualized bony structures are within normal limits.IMPRESSION:1. No evidence for acute cardiopulmonary disease seen.2. COPD/emphysema.3. No significant interval change seen.THIS IS AN ELECTRONICALLY VERIFIED FINAL REPORT09/26/2023 10:26 PM - Electronically signed by Bobby Harper
[2023-09-26 23:04] LABS: BILIRUBIN,URINE NEGATIVE (NEGATIVE); BLOOD/HEMOGLOBIN,URINE 4+ (NEGATIVE); GLUCOSE, URINE NEGATIVE (NEGATIVE); KETONES,URINE NEGATIVE (NEGATIVE); LEUKOCYTE ESTERASE ,URINE NEGATIVE (NEGATIVE); NITRITES,URINE NEGATIVE (NEGATIVE); PROTEIN,URINE 4+ (NEGATIVE); UROBILINOGEN,URINE NORMAL (NORMAL)
[2023-09-26 23:13] LABS: APPEARANCE,URINE CLEAR (CLEAR); BACTERIA,URINE TRACE /HPF (NEGATIVE); COLOR,URINE YELLOW (YELLOW); SQUAMOUS EPITHELIAL CELL,UR RARE /HPF (NEGATIVE)
[2023-09-26 23:15] LABS: ABG BASE EXCESS 15.4 mmol/L (-2.0-2.0)
[2023-09-26 23:17] LABS: ABG ALLEN TEST POS; ABG HCO3 44.7 mmol/L (22-26)
[2023-09-26] MEDS ORDERED: ATIVAN INJ 2 MG VIAL IVP ONE (23:23)
[2023-09-26] MEDS ORDERED: ATIVAN INJ 2 MG VIAL ONE (23:30)
[2023-09-27] MEDS ORDERED: ROCEPHIN VIAL 1 GRAM IVP ONE (00:32)
[2023-09-27] MEDS ORDERED: ROCEPHIN VIAL 1 GRAM ONE (00:38)
[2023-09-27] MEDS ORDERED: NS 1,000 ML IV 1,000 ML ONE (01:27)
[2023-09-27] MEDS ORDERED: NS 1,000 ML IV 1,000 ML IV ONE (01:33)
[2023-09-27] MEDS: ZOSYN VIAL 3.375 GRAMS 3.375 G in NS 100 ML IV 100 ML IV SCH ×3 (03:32→21:02)
[2023-09-27] MEDS: NS 1,000 ML IV 1,000 ML IV SCH ×3 (03:32→19:42)
[2023-09-27 05:22] LABS: BASOPHILS % (AUTO) 0.1 % (0.2-1.0); HEMATOCRIT 35.6 % (36.0-47.0); HEMOGLOBIN 11.4 g/dL (12.0-16.0); LYMPHOCYTES # (AUTO) 0.2 X10^3/uL (1.3-2.9); LYMPHOCYTES % (AUTO) 1.8 % (21.0-51.0); MEAN CORPUSCULAR VOLUME 93.7 fL (80.0-100.0); MEAN PLATELET VOLUME 9.2 fL (7.4-11.0); MONOCYTES # (AUTO) 0.3 x10^3/uL (0.3-0.8); MONOCYTES % (AUTO) 3.4 % (0.0-13.0); NEUTROPHILS # (AUTO) 9.3 x10^3/uL (2.2-4.8); NEUTROPHILS % (AUTO) 94.7 % (42.0-75.0); PLATELET COUNT 254 X10^3/uL (150.0-450.0); RED CELL DISTRIBUTION WIDTH 13.7 % (11.6-16.5); WHITE BLOOD COUNT 9.9 X10^3/uL (3.6-10.0)
[2023-09-27 05:41] LABS: ALANINE AMINOTRANSFERASE 16 Units/L (12-78); ALBUMIN 2.9 g/dL (3.4-5.0); ALKALINE PHOSPHATASE 72 Units/L (46-116); ASPARTATE AMINO TRANSFERASE 9 Units/L (15-37); BLOOD UREA NITROGEN 11 mg/dL (7-18); CALCIUM 9.1 mg/dL (8.5-10.1); CARBON DIOXIDE 37.8 mmol/L (21-32); CHLORIDE 96 mmol/L (98-107); COR NA(FOR HYPERGLY) 141 mmol/L (136-145); CREATININE 0.71 mg/dL (0.55-1.02); GLUCOSE 221 mg/dL (65-99); POTASSIUM 3.8 mmol/L (3.5-5.1); SODIUM 138 mmol/L (136-145); eGFR NON BLACK RACES > 60 (>60)
[2023-09-27] MEDS: DUONEB 0.5 MG/3 MG (3 mL) NEB SCH ×4 (05:42→17:34)
[2023-09-27 05:50] LABS: BAND NEUTROPHILS % 12 % (0-10); PLATELET MORPHOLOGY COMMENT NORMAL (NORMAL)
[2023-09-27] MEDS ORDERED: SOLU-Medrol 40 MG VIAL IVP SCH (06:00)
[2023-09-27] MEDS ORDERED: CONSULT PHARMACY - POTASSIUM & MAGNESIUM XX SCH (07:00)
[2023-09-27] MEDS ORDERED: K-DUR TAB 20 MEQ PO SCH (08:00)
[2023-09-27] MEDS: K-RIDER 10 MEQ/NS 100 ML 10 MEQ/100 ML BAG IV SCH ×2 (08:16→10:29)
[2023-09-27] MEDS: PULMICORT NEB TX 0.5 MG NEB SCH ×2 (08:20→20:56)
[2023-09-27] MEDS: PAXLOVID CO-PACK (EUA) PO SCH ×2 (09:27→20:19)
[2023-09-27] MEDS ORDERED: LOPRESSOR TAB 50 MG PO PRN (10:51)
--- NOTE | 2023-09-27 11:20 | EKG ---
Test Reason : chest pain Blood Pressure : */* mmHG Vent. Rate : 86 BPM Atrial Rate : 86 BPM P-R Int : 106 ms QRS Dur : 92 ms QT Int : 354 ms P-R-T Axes : 66 89 77 degrees QTc Int : 423 ms Sinus rhythm with short MS with premature atrial complexes Right atrial enlargement Incomplete right bundle branch block Right ventricular hypertrophy with repolarization abnormality Abnormal ECG When compared with ECG of 26-SEP-2023 21:40, premature atrial complexes are now present Incomplete right bundle branch block is now present Confirmed by Mayco Barros MD ([id number]) on 09/27/2023 2:12:36 PM Referred By: Confirmed By: Mayco Barros MD
[2023-09-27] MEDS: LOPRESSOR TAB 50 MG PO SCH ×2 (11:32→20:14)
[2023-09-27] MEDS: NORVASC TAB 5 MG PO SCH (11:32)
[2023-09-27] MEDS: SOLU-Medrol 40 MG VIAL IVP SCH ×2 (14:33→21:01)
--- NOTE | 2023-09-27 16:41 | EKG ---
Test Reason : cp Blood Pressure : */* mmHG Vent. Rate : 78 BPM Atrial Rate : 78 BPM P-R Int : 118 ms QRS Dur : 108 ms QT Int : 386 ms P-R-T Axes : 78 76 57 degrees QTc Int : 440 ms Normal sinus rhythm with sinus arrhythmia Incomplete right bundle branch block ST elevation, consider early repolarization, pericarditis, or injury Abnormal ECG When compared with ECG of 27-SEP-2023 10:59, premature atrial complexes are no longer present ST elevation now present in Inferior leads ST elevation has replaced ST depression in Lateral leads Confirmed by Brandon Lujan ([id number]) on 09/30/2023 3:35:20 PM Referred By: Confirmed By: Brandon Lujan
[2023-09-27] MEDS: TYLENOL 325 MG TAB PO PRN (20:15)
[2023-09-27] MEDS ORDERED: AMBIEN PO PRN (20:28)
[2023-09-27] MEDS ORDERED: MOTRIN TAB 800 MG PO PRN (21:06)
[2023-09-27] MEDS ORDERED: TIZANIDINE 2 MG PO SCH (21:08)
[2023-09-27] MEDS: VISTARIL PO PRN (21:47)
[2023-09-27] MEDS: NEURONTIN CAP 300 MG PO SCH (21:48)
--- NOTE | 2023-09-27 22:37 | EKG ---
Test Reason : cp Blood Pressure : */* mmHG Vent. Rate : 75 BPM Atrial Rate : 75 BPM P-R Int : 108 ms QRS Dur : 100 ms QT Int : 382 ms P-R-T Axes : 70 88 64 degrees QTc Int : 426 ms Sinus rhythm with short CO with premature ventricular complexes or fusion complexes Low voltage QRS Incomplete right bundle branch block Borderline ECG When compared with ECG of 27-SEP-2023 16:26, (Unconfirmed) fusion complexes are now present premature ventricular complexes are now present Confirmed by Brandon Lujan ([id number]) on 09/30/2023 3:35:13 PM Referred By: Confirmed By: Brandon Lujan
--- NOTE | 2023-09-27 23:08 | DR.H&P ---
H&P - History & Physical for Day of: H&P Date: 09/27/23 - Chief Complaint Chief Complaint: SHORT OF BREATH, PRODUCTIVE COUGH - History of Present Illness History of Present Illness: IS A 58 YEAR OLD PATIENT OF . SHE HAS A PMH OF ASTHMA, COPD, ANXIETY, ALLERGIC RHINITIS, INSOMNIA, DYSLIPIDEMIA, HTN. SHE PRESENTED TO THE ER WITH COMPLAINTS OF INCREASED SHORTNESS OF BREATH AND DIFFICULTY BREATHING X 4 DAYS. SHE REPORTS THAT SHE HAS BEEN COUGHING UP YELLOW PHLEGHM. SHORTNESS OF BREATH BECAME WORSE TODAY. EMS REPORTS THAT ON ARRIVAL, PATIENT WAS ON HER HOME OXYGEN AT 5 LPM AND WAS GASPING FOR AIR IN THE TRIPOD POSITION. SHE ADMITS TO UTILIZING BREATHING TREATMENT AND INHALERS AT HOME WITHOUT IMPROVEMENT IN SYMPTOMS. ON ARRIVAL TO THE HOSPITAL, HER VITALS WERE: 98.3-90-28-96%-171/77. LABS WERE OBTAINED. WBC 12.1, RBC 3.97, HGB 11.9, HCT 37.2, PLT COUNT 318, SODIUM 134, POTASSIUM 4.2, CHLORIDE 93, CARBON DIOXIDE 42.3, BUN 10, CREATININE 0.65, GLUCOSE 169, CALCIUM 9.3, TOTAL BILI 0.40, AST 12, ALT 18, ALK PHOS 76, CREATINE KINASE 39, TROPONIN 22.8, BNP 78.2, TOTAL PROTEIN 8.2, ALBUMIN 3.1, LACTIC ACID 2.7. ABG WAS OBTAINED AND REVEALED: PH 7.300, PC02 99, P02 103, HC03 48.7, 02 SAT 97, BASE EXCESS 17.6, A-A GRADIENT 30, FI02 36. URINALYSIS WAS OBTAINED AND REVEALED: WBC 0-2, RBC 5-10, BLOOD 4+, PROTEIN 4+. COVID-19 POSITIVE. INFLUENZA AND RSV NEGATIVE. BLOOD AND SPUTUM CULTURES WERE SET UP. A CHEST XRAY WAS OBTAINED AND REVEALED: 1. No evidence for acute cardiopulmonary disease seen. 2. COPD/emphysema. 3. No significant interval change seen. EKG WAS OBTAINED AND REVEALED: NORMAL SINUS RHYTHM WITH HR 85 BPM. SHE WAS PLACED ON THE BIPAP IN THE ER. SHE WAS GIVEN APRESOLINE 10MG IV X 1 DOSE, SOLU-MEDROL 125MG IV X 1 DOSE, DUONEB X 1 DOSE, ATIVAN 0.5MG IV X 1 DOSE, ROCEPHIN 1G IV X 1, NORMAL SALINE ONE LITER BOLUS. SHE WAS ADMITTED TO THE HOSPITAL INPATIENT STATUS FOR FURTHER EVALUATION AND TREATMENT OF COVID-19, COPD EXACERBATION, RESPIRATORY INSUFFICIENCY, HTN. HE WAS STARTED ON NORMAL SALINE AT 125 ML/HR, ZOSYN 3.375G IV TID, ROCEPHIN 1G IV X 1 DOSE, PAXLOVID BID, DUONEBS Q6H, PULMICORT NEBS BID, TYLENOL 650MG PO Q6H PRN, SOLU-MEDROL 80MG IV Q8H, VISTARIN 25MG PO Q8H PRN. WE WILL RESUME HER HOME MEDICATIONS OF NORVASC, NEURONTIN, MOTRIN, MEGACE, LOPRESSOR, SINGULAIR, OXYBUTYNIN, ZANAFLEX, PANTOPRAZOLE, AND AMBIEN. WE WILL OBTAIN SERIAL CARDIAC ENZYMES AND EKGS. OTHERWISE, WE PLAN TO FOLLOW-UP WITH AM LABS AND CHEST XRAY AND CONTINUE TO MONITOR. TIME SPENT ON CLINICAL ASSESSMENT, REVIEWING LABS AND IMAGING, DECISION MAKING, AND DOCUMENTATION GREATER THAN 75 MINUTES. - Past Medical History Past Medical History: Hypertension, Dyslipidemia, COPD, Asthma, GERD - Past Surgical History Surgical History: Hysterectomy - Family History Family Medical History: Cancer, Hypertension - Social History Does patient currently use any type of tobacco product: Yes Have you used tobacco products in the last 12 months: Yes Type of Tobacco Use: Cigarettes Alcohol Use: None Drug Use: None - Review of Systems Constitutional: Weakness Eyes: No Symptoms Reported ENT: No Symptoms Reported Respiratory: Cough, Shortness of Breath, SOB with Excertion, Wheezing Cardiovascular: No Symptoms Reported Gastrointestinal: No Symptoms Reported Genitourinary: No Symptoms Reported Musculoskeletal: No Symptoms Reported Skin: No Symptoms Reported Neurological: Weakness - Physical Exam Vital Signs: Vital Signs Temperature 99.9 F Temperature 98.4 F Pulse Rate 76 Pulse Rate 69 Pulse Rate 77 Pulse Rate 73 Pulse Rate 78 Pulse Rate 74 Pulse Rate 68 Pulse Rate 76 Respiratory Rate 29 Respiratory Rate 19 Respiratory Rate 24 Respiratory Rate 19 Respiratory Rate 23 Respiratory Rate 21 Respiratory Rate 28 Respiratory Rate 22 Respiratory Rate 24 Respiratory Rate 27 Respiratory Rate 25 Blood Pressure 163/71 Blood Pressure 161/72 Blood Pressure 168/72 Blood Pressure 163/71 Blood Pressure 174/74 Blood Pressure 159/74 Blood Pressure 163/75 Blood Pressure 166/78 O2 Sat by Pulse Oximetry 100 O2 Sat by Pulse Oximetry 98 O2 Sat by Pulse Oximetry 96 O2 Sat by Pulse Oximetry 95 O2 Sat by Pulse Oximetry 94 O2 Sat by Pulse Oximetry 100 O2 Sat by Pulse Oximetry 99 O2 Sat by Pulse Oximetry 99 Oriented: Normal Eyes: Normal Ear: Normal Nose: Normal Throat: Normal Respiratory: Wheezes Throughout Cardiovascular: Normal : Normal Auscultation: Bowel Sounds: Normal Palpation: Normal Tenderness: Normal Skin: Normal Musculoskeletal: Normal Psychiatric: Normal Mood Description: Calm Affect: Normal Speech Pattern: Clear - Assessment/Plan (1) COVID-19 Status: Acute Plan: ADMIT, BIPAP/SUPPLEMENTAL OXGYEN, NORMAL SALINE AT 125 ML/HR, ZOSYN 3.375G IV TID, ROCEPHIN 1G IV X 1 DOSE, PAXLOVID BID, DUONEBS Q6H, PULMICORT NEBS BID, TYLENOL 650MG PO Q6H PRN, SOLU-MEDROL 80MG IV Q8H, VISTARIN 25MG PO Q8H PRN. WE WILL RESUME HER HOME MEDICATIONS OF NORVASC, NEURONTIN, MOTRIN, MEGACE, LOPRESSOR, SINGULAIR, OXYBUTYNIN, ZANAFLEX, PANTOPRAZOLE, AND AMBIEN. (2) COPD exacerbation Status: Acute (3) Acute respiratory insufficiency Status: Acute (4) Insomnia Qualifiers: Insomnia type: primary Qualified Code(s): F51.01 - Primary insomnia Status: Chronic (5) Hypertension Qualifiers: Hypertension type: primary hypertension Qualified Code(s): I10 - Essential (primary) hypertension Status: Chronic (6) Anxiety Status: Chronic (7) Gastroesophageal reflux disease Qualifiers: Esophagitis presence: esophagitis presence not specified Qualified Code(s): K21.9 - Gastro-esophageal reflux disease without esophagitis Status: Chronic - Allergies Allergies/Adverse Reactions: Allergies Allergy/AdvReac Type Severity Reaction Status Date / Time ASHLEY Inhibitors Allergy Unknown Cough Verified 08/17/23 09:44 - Medications Home Medications: Home Medications Medication Instructions Recorded Confirmed metoprolol tartrate 100 mg tablet 100 mg PO BID 06/03/23 09/27/23 montelukast 10 mg tablet 10 mg PO QDAY 06/03/23 09/27/23 pantoprazole 20 mg tablet,delayed 20 mg PO QDAY 06/03/23 09/27/23 release gabapentin 100 mg capsule 100 mg PO QDAY 08/14/23 09/27/23 LBP/Spasms gabapentin 300 mg capsule 300 mg PO QHS LBP/neuropathy 08/14/23 09/27/23 fluticasone fur. 100 mcg-umeclid 1 inh inhalation Q24H 09/27/23 09/27/23 62.5 mcg-vilant 25 mcg inhalat.powder (Trelegy Ellipta) ibuprofen 800 mg tablet 800 mg PO 1-3XD PRN 09/27/23 09/27/23 Previous Rx's Medication Instructions Recorded atorvastatin 40 mg tablet 40 mg PO QHS PAD/high risk CAD 1 06/13/23 month #30 tabs alprazolam 0.5 mg tablet 0.5 mg PO BID PRN anxiety 1 month 08/14/23 #60 tabs amlodipine 5 mg tablet 5 mg PO QDAY Blood pressure & 08/14/23 heart 1 month #30 tabs oxybutynin chloride 10 mg 10 mg PO QDAY bladder incontinence 08/14/23 tablet,extended release 24 hr 1 month #30 tabs tizanidine 2 mg tablet 2 mg PO QHS for muscle spasm #30 09/02/23 tabs albuterol sulfate 90 mcg/actuation 2 puff inhalation Q4H PRN 09/03/23 aerosol inhaler shortness of breath or wheezing #8.5 grams zolpidem 10 mg tablet 10 mg PO QPM PRN insomnia 1 month 09/03/23 #30 tabs megestrol 40 mg tablet 40 mg PO QDAY Weight 09/05/23 loss/increased appetite 1 month #30 tabs
[2023-09-28] MEDS: DUONEB 0.5 MG/3 MG (3 mL) NEB SCH ×5 (00:15→17:00)
[2023-09-28] MEDS: NS 1,000 ML IV 1,000 ML IV SCH ×5 (00:31→20:09)
[2023-09-28] MEDS: ROCEPHIN VIAL 1 GRAM 1 G in NS 100 ML IV 100 ML IV SCH (00:48)
[2023-09-28 05:12] LABS: BASOPHILS % (AUTO) 0.3 % (0.2-1.0); HEMATOCRIT 30.7 % (36.0-47.0); HEMOGLOBIN 9.9 g/dL (12.0-16.0); LYMPHOCYTES # (AUTO) 0.6 X10^3/uL (1.3-2.9); LYMPHOCYTES % (AUTO) 5.2 % (21.0-51.0); MEAN CORPUSCULAR HEMOGLOBIN 29.9 pg (27.0-34.0); MEAN CORPUSCULAR HGB CONC 32.4 g/dL (33.0-35.0); MEAN CORPUSCULAR VOLUME 92.3 fL (80.0-100.0); MEAN PLATELET VOLUME 9.2 fL (7.4-11.0); MONOCYTES # (AUTO) 0.3 x10^3/uL (0.3-0.8); MONOCYTES % (AUTO) 2.9 % (0.0-13.0); NEUTROPHILS # (AUTO) 10.1 x10^3/uL (2.2-4.8); NEUTROPHILS % (AUTO) 91.6 % (42.0-75.0); PLATELET COUNT 288 X10^3/uL (150.0-450.0); RED BLOOD COUNT 3.33 X10^6/uL (3.5-5.4); RED CELL DISTRIBUTION WIDTH 13.8 % (11.6-16.5)
[2023-09-28] MEDS: SOLU-Medrol 40 MG VIAL IVP SCH ×3 (05:20→21:03)
[2023-09-28] MEDS: ZOSYN VIAL 3.375 GRAMS 3.375 G in NS 100 ML IV 100 ML IV SCH ×3 (05:20→21:02)
[2023-09-28 05:23] LABS: ALANINE AMINOTRANSFERASE 13 Units/L (12-78); ALBUMIN 2.4 g/dL (3.4-5.0); ALKALINE PHOSPHATASE 60 Units/L (46-116); ASPARTATE AMINO TRANSFERASE 10 Units/L (15-37); BLOOD UREA NITROGEN 10 mg/dL (7-18); CALCIUM 9.2 mg/dL (8.5-10.1); CARBON DIOXIDE 37.9 mmol/L (21-32); CHLORIDE 99 mmol/L (98-107); COR CA(FOR HYPOALB) 10.5 mg/dL (8.5-10.1); COR NA(FOR HYPERGLY) 142 mmol/L (136-145); CREATININE 0.65 mg/dL (0.55-1.02); GLUCOSE 131 mg/dL (65-99); MAGNESIUM 1.8 mg/dL (2.0-2.9); POTASSIUM 4.3 mmol/L (3.5-5.1); SODIUM 141 mmol/L (136-145); TOTAL PROTEIN 6.9 g/dL (6.4-8.2); eGFR NON BLACK RACES > 60 (>60)
[2023-09-28 05:33] LABS: BAND NEUTROPHILS % 5 % (0-10); PLATELET MORPHOLOGY COMMENT NORMAL (NORMAL)
[2023-09-28] MEDS ORDERED: CONSULT PHARMACY - POTASSIUM & MAGNESIUM XX SCH (07:00)
[2023-09-28] MEDS: PULMICORT NEB TX 0.5 MG NEB SCH ×2 (08:59→21:37)
[2023-09-28] MEDS: LOPRESSOR TAB 50 MG PO SCH ×2 (09:09→20:05)
[2023-09-28] MEDS: MEGACE PO SCH (09:11)
[2023-09-28] MEDS: MAG-OX TAB PO SCH ×2 (09:11→10:03)
[2023-09-28] MEDS: NEURONTIN CAP 100 MG PO SCH (09:11)
[2023-09-28] MEDS: NORVASC TAB 5 MG PO SCH (09:12)
[2023-09-28] MEDS: SINGULAIR TAB 10 MG PO SCH (09:15)
[2023-09-28] MEDS: PAXLOVID CO-PACK (EUA) PO SCH ×2 (09:15→20:10)
[2023-09-28] MEDS: OXYBUTYNIN CHLORIDE ER PO SCH (09:15)
[2023-09-28] MEDS: PROTONIX TAB 40 MG PO SCH (10:03)
[2023-09-28] MEDS: TYLENOL 325 MG TAB PO PRN (18:53)
[2023-09-28] MEDS: AMBIEN PO PRN (20:05)
[2023-09-28] MEDS: ZANAFLEX PO SCH (20:05)
[2023-09-28] MEDS: NEURONTIN CAP 300 MG PO SCH (20:13)
[2023-09-29] MEDS: DUONEB 0.5 MG/3 MG (3 mL) NEB SCH ×4 (00:28→18:37)
[2023-09-29] MEDS: ROCEPHIN VIAL 1 GRAM 1 G in NS 100 ML IV 100 ML IV SCH (01:54)
[2023-09-29] MEDS: NS 1,000 ML IV 1,000 ML IV SCH ×4 (03:45→18:49)
[2023-09-29] MEDS: SOLU-Medrol 40 MG VIAL IVP SCH ×3 (05:02→21:27)
[2023-09-29] MEDS: ZOSYN VIAL 3.375 GRAMS 3.375 G in NS 100 ML IV 100 ML IV SCH ×3 (05:02→21:27)
[2023-09-29 05:24] LABS: HEMOGLOBIN 9.8 g/dL (12.0-16.0); LYMPHOCYTES # (AUTO) 0.5 X10^3/uL (1.3-2.9); RED CELL DISTRIBUTION WIDTH 13.6 % (11.6-16.5); WHITE BLOOD COUNT 11.3 X10^3/uL (3.6-10.0)
[2023-09-29 05:32] LABS: BASOPHILS % (AUTO) 0.2 % (0.2-1.0); LYMPHOCYTES % (AUTO) 4.3 % (21.0-51.0); MEAN CORPUSCULAR HGB CONC 32.6 g/dL (33.0-35.0); MEAN CORPUSCULAR VOLUME 91.9 fL (80.0-100.0); MONOCYTES # (AUTO) 0.3 x10^3/uL (0.3-0.8); MONOCYTES % (AUTO) 2.7 % (0.0-13.0); NEUTROPHILS # (AUTO) 10.5 x10^3/uL (2.2-4.8); NEUTROPHILS % (AUTO) 92.8 % (42.0-75.0); PLATELET COUNT 293 X10^3/uL (150.0-450.0); RED BLOOD COUNT 3.27 X10^6/uL (3.5-5.4)
[2023-09-29 05:47] LABS: ALANINE AMINOTRANSFERASE 14 Units/L (12-78); ALBUMIN 2.4 g/dL (3.4-5.0); ALKALINE PHOSPHATASE 62 Units/L (46-116); ASPARTATE AMINO TRANSFERASE 9 Units/L (15-37); BLOOD UREA NITROGEN 11 mg/dL (7-18); CALCIUM 8.6 mg/dL (8.5-10.1); CARBON DIOXIDE 36.1 mmol/L (21-32); CHLORIDE 100 mmol/L (98-107); COR CA(FOR HYPOALB) 9.9 mg/dL (8.5-10.1); COR NA(FOR HYPERGLY) 141 mmol/L (136-145); CREATININE 0.71 mg/dL (0.55-1.02); GLUCOSE 160 mg/dL (65-99); MAGNESIUM 1.8 mg/dL (2.0-2.9); POTASSIUM 3.4 mmol/L (3.5-5.1); SODIUM 140 mmol/L (136-145); TOTAL PROTEIN 6.7 g/dL (6.4-8.2); eGFR NON BLACK RACES > 60 (>60)
[2023-09-29 05:52] LABS: BAND NEUTROPHILS % 3 % (0-10)
[2023-09-29 05:53] LABS: PLATELET MORPHOLOGY COMMENT NORMAL (NORMAL)
--- NOTE | 2023-09-29 06:49 | RAD ---
EXAM:Portable chestHISTORY:Shortness of breathCOMPARISON:09/26/2023FINDINGS:Hear t size is normal. Iris are normal. Hyperinflation is present. Lung morgan are clear. No pleural effusions are identified. Bony thorax is unremarkable.IMPRESSION:Lungs hyperinflated but clearTHIS IS AN ELECTRONICALLY VERIFIED FINAL REPORT09/29/2023 6:46 AM - Electronically signed by Sal Ladd MD
[2023-09-29] MEDS ORDERED: CONSULT PHARMACY - POTASSIUM & MAGNESIUM XX SCH (07:00)
[2023-09-29] MEDS: OXYBUTYNIN CHLORIDE ER PO SCH (08:28)
[2023-09-29] MEDS: MAG-OX TAB PO SCH ×2 (08:28→09:37)
[2023-09-29] MEDS: PROTONIX TAB 40 MG PO SCH (08:28)
[2023-09-29] MEDS: SINGULAIR TAB 10 MG PO SCH (08:28)
[2023-09-29] MEDS: MEGACE PO SCH (08:28)
[2023-09-29] MEDS: NORVASC TAB 5 MG PO SCH (08:28)
[2023-09-29] MEDS: LOPRESSOR TAB 50 MG PO SCH ×2 (08:29→20:24)
[2023-09-29] MEDS: PAXLOVID CO-PACK (EUA) PO SCH ×2 (08:29→20:24)
[2023-09-29] MEDS ORDERED: K-DUR TAB 20 MEQ PO SCH (09:00)
[2023-09-29] MEDS: NEURONTIN CAP 100 MG PO SCH (09:03)
[2023-09-29] MEDS: PULMICORT NEB TX 0.5 MG NEB SCH ×2 (09:16→20:30)
[2023-09-29 11:24] LABS: ABG HCO3 46.1 mmol/L (22-26)
[2023-09-29] MEDS: AMBIEN PO PRN (20:24)
[2023-09-29] MEDS: ZANAFLEX PO SCH (20:24)
--- NOTE | 2023-09-29 21:16 | PCM.PROG ---
Progress Note Progress Note for Day of Date of Exam: 09/29/23 Subjective Subjective: The patient is resting comfortably this morning and has no new complaints today. She reports her breathing is doing little bit better since admission and she feels better overall. She was having some hypoxia yesterday and is still hypoxic this morning but is on 3 L of O2 at this time. Her ABG this morning shows that her pCO2 has come down to 71 from 81. Her bicarb is still elevated at 44, and her O2 sat is running between 96 to 100%. We will continue her current treatment at this time and her primary care provider, Dr. Jung we will resume her care when he is back tomorrow. Past Medical Family Social History Allergies: Allergies ASHLEY Inhibitors Allergy (Unknown, Verified 08/17/23 09:44) Cough Comments: Lisinopril Review of Systems ROS: No change since H&P Vital Signs and I&O's Vital Signs: Vital Signs Temperature 98.2 F Temperature 97.9 F Pulse Rate 67 Pulse Rate 68 Pulse Rate 69 Pulse Rate 70 Pulse Rate 68 Pulse Rate 66 Pulse Rate 71 Pulse Rate 82 Pulse Rate 83 Pulse Rate 73 Pulse Rate 70 Pulse Rate 72 Respiratory Rate 22 Respiratory Rate 25 Respiratory Rate 26 Respiratory Rate 24 Respiratory Rate 27 Respiratory Rate 22 Respiratory Rate 19 Respiratory Rate 53 Respiratory Rate 39 Respiratory Rate 31 Respiratory Rate 28 Respiratory Rate 47 Blood Pressure 155/71 Blood Pressure 140/64 Blood Pressure 156/70 Blood Pressure 138/62 Blood Pressure 143/61 Blood Pressure 141/59 Blood Pressure 146/65 Blood Pressure 134/62 O2 Sat by Pulse Oximetry 96 O2 Sat by Pulse Oximetry 100 O2 Sat by Pulse Oximetry 100 O2 Sat by Pulse Oximetry 94 O2 Sat by Pulse Oximetry 96 O2 Sat by Pulse Oximetry 98 O2 Sat by Pulse Oximetry 99 O2 Sat by Pulse Oximetry 97 O2 Sat by Pulse Oximetry 96 O2 Sat by Pulse Oximetry 93 O2 Sat by Pulse Oximetry 100 O2 Sat by Pulse Oximetry 100 Intake and Output: Intake & Output 09/27/23 09/28/23 09/29/23 09/30/23 11:59 11:59 11:59 11:59 Intake Total 2913 / 2913 4623 / 4623 1542 / 1542 Output Total 675 / 675 3000 / 3000 3600 / 3600 1999 / 1999 Balance -650 / -650 -87 / -87 1023 / 1023 -458 / -458 Physical Exam Oriented: Normal Eyes: Normal Ear: Normal Nose: Normal Throat: Normal Respiratory: Generalized, Diminished and Rhonchi Cardiovascular: Normal : Normal Auscultation: Bowel Sounds: Normal Tenderness: Normal Skin: Normal Musculoskeletal: Normal Psychiatric: Normal Mood Description: Calm Affect: Normal Speech Pattern: Clear and Appropriate Laboratory and Diagnostics 09/29/23 04:30 09/29/23 04:30 Labs: 09/27/23 00:40 Blood Blood Culture - Preliminary 09/26/23 21:42 Sputum - Expectorated Sputum Sputum Culture - Preliminary Escherichia Coli 09/26/23 21:42 Sputum - Expectorated Sputum - Final 09/26/23 00:40 Blood Blood Culture - Preliminary Laboratory WBC 11.3 X10^3/uL (3.6-10.0) H 09/29/23 04:30 RBC 3.27 X10^6/uL (3.5-5.4) L 09/29/23 04:30 Hgb 9.8 g/dL (12.0-16.0) L 09/29/23 04:30 Hct 30.0 % (36.0-47.0) L 09/29/23 04:30 MCV 91.9 fL (80.0-100.0) 09/29/23 04:30 MCH 30.0 pg (27.0-34.0) 09/29/23 04:30 MCHC 32.6 g/dL (33.0-35.0) L 09/29/23 04:30 RDW 13.6 % (11.6-16.5) 09/29/23 04:30 Plt Count 293 X10^3/uL (150.0-450.0) 09/29/23 04:30 Plt Count Comment Adequate (ADEQUATE) 09/29/23 04:30 MPV 9.0 fL (7.4-11.0) 09/29/23 04:30 Neut % (Auto) 92.8 % (42.0-75.0) H 09/29/23 04:30 Lymph % (Auto) 4.3 % (21.0-51.0) L 09/29/23 04:30 [place] % (Auto) 2.7 % (0.0-13.0) 09/29/23 04:30 Eos % (Auto) 0.0 % (0.9-2.9) L 09/29/23 04:30 Baso % (Auto) 0.2 % (0.2-1.0) 09/29/23 04:30 Neut # (Auto) 10.5 x10^3/uL (2.2-4.8) H 09/29/23 04:30 Lymph # (Auto) 0.5 X10^3/uL (1.3-2.9) L 09/29/23 04:30 [place] # (Auto) 0.3 x10^3/uL (0.3-0.8) 09/29/23 04:30 Eos # (Auto) 0.0 x10^3/uL (0.0-0.2) 09/29/23 04:30 Baso # (Auto) 0.0 X10^3/uL (0.0-0.1) 09/29/23 04:30 Absolute Nucleated RBC 0.1 /100WBC 09/29/23 04:30 Total Counted 100 09/29/23 04:30 Neutrophils % (Manual) 89 % (39-76) H 09/29/23 04:30 Band Neutrophils % 3 % (0-10) 09/29/23 04:30 Lymphocytes % (Manual) 6 % (13-43) L 09/29/23 04:30 Monocytes % (Manual) 2 % (4-9) L 09/29/23 04:30 Plt Morphology Comment Normal (NORMAL) 09/29/23 04:30 RBC Morphology Normal (NORMAL) 09/29/23 04:30 Sample Site Rb 09/29/23 11:18 ABG pH 7.420 (7.35-7.45) 09/29/23 11:18 ABG pCO2 71.0 mmHg (35.0-45.0) H* 09/29/23 11:18 ABG pO2 131.0 mmHg (80.0-100.0) H 09/29/23 11:18 ABG HCO3 46.1 mmol/L (22-26) H* 09/29/23 11:18 ABG O2 Saturation 99.0 % (90-100) 09/29/23 11:18 ABG Base Excess 18.0 mmol/L (-2.0-2.0) H 09/29/23 11:18 Omar Test Na 09/29/23 11:18 A-a Gradient 65.0 mmHg 09/29/23 11:18 FiO2 40.0 09/29/23 11:18 Blood Gas Comments [facility] 09/29/23 11:18 Sodium 140 mmol/L (136-145) 09/29/23 04:30 Corrected Sodium 141 mmol/L (136-145) 09/29/23 04:30 Potassium 3.4 mmol/L (3.5-5.1) L 09/29/23 04:30 Chloride 100 mmol/L (98-107) 09/29/23 04:30 Carbon Dioxide 36.1 mmol/L (21-32) H 09/29/23 04:30 BUN 11 mg/dL (7-18) 09/29/23 04:30 Creatinine 0.71 mg/dL (0.55-1.02) 09/29/23 04:30 Est GFR (MDRD) Af Amer > 60 (>60) 09/29/23 04:30 Est GFR (MDRD) Non-Af > 60 (>60) 09/29/23 04:30 Glucose 160 mg/dL (65-99) H 09/29/23 04:30 Lactic Acid 3.3 mmol/L (0.4-2.0) H 09/27/23 06:34 Calcium 8.6 mg/dL (8.5-10.1) 09/29/23 04:30 Corrected Calcium 9.9 mg/dL (8.5-10.1) 09/29/23 04:30 Magnesium 1.8 mg/dL (2.0-2.9) L 09/29/23 04:30 Total Bilirubin 0.10 mg/dL (0.2-1.0) L 09/29/23 04:30 AST 9 Units/L (15-37) L 09/29/23 04:30 ALT 14 Units/L (12-78) 09/29/23 04:30 Alkaline Phosphatase 62 Units/L (46-116) 09/29/23 04:30 Creatine Kinase 46 Units/L (26-192) 09/27/23 11:19 Troponin I High Sens 33.5 ng/L (4.0-60.0) 09/27/23 23:00 B-Natriuretic Peptide 78.2 pg/mL (0-79) 09/26/23 21:56 Total Protein 6.7 g/dL (6.4-8.2) 09/29/23 04:30 Albumin 2.4 g/dL (3.4-5.0) L 09/29/23 04:30 Globulin 4.3 g/dL (2.5-4.5) 09/29/23 04:30 Albumin/Globulin Ratio 0.6 Ratio (1.1-2.1) L 09/29/23 04:30 Specimen Type Catherized urine 09/26/23 22:45 Urine Color Yellow (YELLOW) 09/26/23 22:45 Urine Appearance Clear (CLEAR) 09/26/23 22:45 Urine pH 6.0 (5.0 - 8.0) 09/26/23 22:45 Ur Specific [place] 1.020 (1.000-1.030) 09/26/23 22:45 Urine Protein 4+ (NEGATIVE) 09/26/23 22:45 Urine Glucose (UA) Negative (NEGATIVE) 09/26/23 22:45 Urine Ketones Negative (NEGATIVE) 09/26/23 22:45 Urine Blood 4+ (NEGATIVE) 09/26/23 22:45 Urine Nitrite Negative (NEGATIVE) 09/26/23 22:45 Urine Bilirubin Negative (NEGATIVE) 09/26/23 22:45 Urine Urobilinogen Normal (NORMAL) 09/26/23 22:45 Ur Leukocyte Esterase Negative (NEGATIVE) 09/26/23 22:45 Urine RBC 5-10 /HPF (0-3) A 09/26/23 22:45 Urine WBC 0-2 /HPF (0-5) 09/26/23 22:45 Ur Squamous Epith Cells Rare /HPF (NEGATIVE) 09/26/23 22:45 Urine Bacteria Trace /HPF (NEGATIVE) 09/26/23 22:45 Urine Mucus Rare /HPF (NEGATIVE) 09/26/23 22:45 Ur Culture Indicated? No/not indicated 09/26/23 22:45 SARS-CoV-2 (PCR) Positive (NEGATIVE) A 09/26/23 22:08 Influenza Type A (PCR) Negative (NEGATIVE) 09/26/23 22:08 Influenza Type B (PCR) Negative (NEGATIVE) 09/26/23 22:08 RSV (PCR) Negative (NEGATIVE) 09/26/23 22:08 Plan (1) COVID-19: Status: Acute Plan: ADMIT, BIPAP/SUPPLEMENTAL OXGYEN, NORMAL SALINE AT 125 ML/HR, ZOSYN 3.375G IV TID, ROCEPHIN 1G IV X 1 DOSE, PAXLOVID BID, DUONEBS Q6H, PULMICORT NEBS BID, TYLENOL 650MG PO Q6H PRN, SOLU-MEDROL 80MG IV Q8H, VISTARIN 25MG PO Q8H PRN. WE WILL RESUME HER HOME MEDICATIONS OF NORVASC, NEURONTIN, MOTRIN, MEGACE, LOPRESSOR, SINGULAIR, OXYBUTYNIN, ZANAFLEX, PANTOPRAZOLE, AND AMBIEN. (2) COPD exacerbation: Status: Acute (3) Acute respiratory insufficiency: Status: Acute (4) Insomnia: Status: Chronic Qualifiers: Insomnia type: primary Qualified Code(s): F51.01 - Primary insomnia (5) Hypertension: Status: Chronic Qualifiers: Hypertension type: primary hypertension Qualified Code(s): I10 - Essential (primary) hypertension (6) Anxiety: Status: Chronic (7) Gastroesophageal reflux disease: Status: Chronic Qualifiers: Esophagitis presence: esophagitis presence not specified Qualified Code(s): K21.9 - Gastro-esophageal reflux disease without esophagitis
[2023-09-29] MEDS: NEURONTIN CAP 300 MG PO SCH (21:26)
[2023-09-30] MEDS: ROCEPHIN VIAL 1 GRAM 1 G in NS 100 ML IV 100 ML IV SCH (00:02)
[2023-09-30] MEDS: DUONEB 0.5 MG/3 MG (3 mL) NEB SCH ×4 (00:18→17:29)
[2023-09-30] MEDS: NS 1,000 ML IV 1,000 ML IV SCH ×3 (02:11→21:18)
[2023-09-30] MEDS: SOLU-Medrol 40 MG VIAL IVP SCH ×3 (05:06→21:18)
[2023-09-30] MEDS: ZOSYN VIAL 3.375 GRAMS 3.375 G in NS 100 ML IV 100 ML IV SCH ×3 (05:06→21:15)
[2023-09-30 05:23] LABS: BASOPHILS % (AUTO) 0.2 % (0.2-1.0); HEMATOCRIT 32.5 % (36.0-47.0); HEMOGLOBIN 10.6 g/dL (12.0-16.0); LYMPHOCYTES # (AUTO) 0.4 X10^3/uL (1.3-2.9); LYMPHOCYTES % (AUTO) 4.4 % (21.0-51.0); MEAN CORPUSCULAR HEMOGLOBIN 29.9 pg (27.0-34.0); MEAN CORPUSCULAR HGB CONC 32.7 g/dL (33.0-35.0); MEAN CORPUSCULAR VOLUME 91.6 fL (80.0-100.0); MEAN PLATELET VOLUME 8.5 fL (7.4-11.0); MONOCYTES # (AUTO) 0.3 x10^3/uL (0.3-0.8); MONOCYTES % (AUTO) 3.2 % (0.0-13.0); NEUTROPHILS % (AUTO) 92.2 % (42.0-75.0); PLATELET COUNT 302 X10^3/uL (150.0-450.0); RED BLOOD COUNT 3.55 X10^6/uL (3.5-5.4); RED CELL DISTRIBUTION WIDTH 13.6 % (11.6-16.5); WHITE BLOOD COUNT 8.7 X10^3/uL (3.6-10.0)
[2023-09-30 05:34] LABS: ALANINE AMINOTRANSFERASE 25 Units/L (12-78); ALBUMIN 2.4 g/dL (3.4-5.0); ALKALINE PHOSPHATASE 64 Units/L (46-116); ASPARTATE AMINO TRANSFERASE 15 Units/L (15-37); BLOOD UREA NITROGEN 8 mg/dL (7-18); CALCIUM 8.6 mg/dL (8.5-10.1); CARBON DIOXIDE 38.4 mmol/L (21-32); CHLORIDE 98 mmol/L (98-107); COR CA(FOR HYPOALB) 9.9 mg/dL (8.5-10.1); COR NA(FOR HYPERGLY) 140 mmol/L (136-145); CREATININE 0.67 mg/dL (0.55-1.02); GLUCOSE 127 mg/dL (65-99); MAGNESIUM 1.8 mg/dL (2.0-2.9); POTASSIUM 3.6 mmol/L (3.5-5.1); SODIUM 139 mmol/L (136-145); TOTAL PROTEIN 6.6 g/dL (6.4-8.2); eGFR NON BLACK RACES > 60 (>60)
--- NOTE | 2023-09-30 05:57 | RAD ---
EXAM:CHEST, 1 VIEWHISTORY:SOB, COVID;COMPARISON:09/29/2023FINDINGS:The trachea is midline. The cardiac silhouette is unremarkable . The lungs are clear without focal infiltrate or effusion. The bony thorax is unremarkable.IMPRESSION:No acute cardiopulmonary disease.THIS IS AN ELECTRONICALLY VERIFIED FINAL REPORT09/30/2023 5:48 AM - Electronically signed by David Pedro MD
[2023-09-30 06:20] LABS: PLATELET MORPHOLOGY COMMENT NORMAL (NORMAL)
[2023-09-30] MEDS ORDERED: CONSULT PHARMACY - POTASSIUM & MAGNESIUM XX SCH (07:00)
[2023-09-30] MEDS: PAXLOVID CO-PACK (EUA) PO SCH ×2 (08:23→20:51)
[2023-09-30] MEDS: OXYBUTYNIN CHLORIDE ER PO SCH (08:24)
[2023-09-30] MEDS: SINGULAIR TAB 10 MG PO SCH (08:24)
[2023-09-30] MEDS: MEGACE PO SCH (08:24)
[2023-09-30] MEDS: LOPRESSOR TAB 50 MG PO SCH ×2 (08:24→20:45)
[2023-09-30] MEDS: MAG-OX TAB PO SCH ×2 (08:24→09:45)
[2023-09-30] MEDS: NORVASC TAB 5 MG PO SCH (08:24)
[2023-09-30] MEDS: PROTONIX TAB 40 MG PO SCH (08:24)
[2023-09-30] MEDS: NEURONTIN CAP 100 MG PO SCH (08:25)
[2023-09-30] MEDS ORDERED: K-DUR TAB 20 MEQ PO SCH (09:00)
[2023-09-30] MEDS: PULMICORT NEB TX 0.5 MG NEB SCH ×2 (09:04→20:00)
[2023-09-30 10:53] VITALS: BMI 22.2
[2023-09-30] MEDS: ZANAFLEX PO SCH (20:47)
[2023-09-30] MEDS: AMBIEN PO PRN (20:51)
[2023-09-30] MEDS: NEURONTIN CAP 300 MG PO SCH (20:51)
[2023-09-30] MEDS: TYLENOL 325 MG TAB PO PRN (20:52)
[2023-09-30] MEDS: VISTARIL PO PRN (21:19)
[2023-10-01] MEDS: DUONEB 0.5 MG/3 MG (3 mL) NEB SCH ×2 (00:17→05:01)
[2023-10-01] MEDS: ROCEPHIN VIAL 1 GRAM 1 G in NS 100 ML IV 100 ML IV SCH (02:20)
[2023-10-01 05:35] LABS: BASOPHILS % (AUTO) 0.4 % (0.2-1.0); HEMOGLOBIN 12.1 g/dL (12.0-16.0); LYMPHOCYTES # (AUTO) 0.4 X10^3/uL (1.3-2.9); LYMPHOCYTES % (AUTO) 4.1 % (21.0-51.0); MEAN CORPUSCULAR HEMOGLOBIN 29.8 pg (27.0-34.0); MEAN CORPUSCULAR HGB CONC 32.6 g/dL (33.0-35.0); MEAN CORPUSCULAR VOLUME 91.3 fL (80.0-100.0); MEAN PLATELET VOLUME 8.6 fL (7.4-11.0); MONOCYTES # (AUTO) 0.4 x10^3/uL (0.3-0.8); MONOCYTES % (AUTO) 4.6 % (0.0-13.0); NEUTROPHILS % (AUTO) 90.9 % (42.0-75.0); PLATELET COUNT 321 X10^3/uL (150.0-450.0); RED BLOOD COUNT 4.05 X10^6/uL (3.5-5.4); RED CELL DISTRIBUTION WIDTH 13.3 % (11.6-16.5); WHITE BLOOD COUNT 8.8 X10^3/uL (3.6-10.0)
[2023-10-01 05:44] LABS: ALANINE AMINOTRANSFERASE 84 Units/L (12-78); ALBUMIN 2.6 g/dL (3.4-5.0); ALKALINE PHOSPHATASE 65 Units/L (46-116); ASPARTATE AMINO TRANSFERASE 29 Units/L (15-37); BLOOD UREA NITROGEN 8 mg/dL (7-18); CALCIUM 8.6 mg/dL (8.5-10.1); CARBON DIOXIDE 40.3 mmol/L (21-32); CHLORIDE 96 mmol/L (98-107); COR CA(FOR HYPOALB) 9.7 mg/dL (8.5-10.1); COR NA(FOR HYPERGLY) 138 mmol/L (136-145); GLUCOSE 129 mg/dL (65-99); POTASSIUM 3.1 mmol/L (3.5-5.1); SODIUM 137 mmol/L (136-145); eGFR NON BLACK RACES > 60 (>60)
[2023-10-01] MEDS: NS 1,000 ML IV 1,000 ML IV SCH ×3 (05:45→12:18)
[2023-10-01] MEDS: SOLU-Medrol 40 MG VIAL IVP SCH (05:55)
[2023-10-01] MEDS: ZOSYN VIAL 3.375 GRAMS 3.375 G in NS 100 ML IV 100 ML IV SCH (05:56)
[2023-10-01 06:10] LABS: BAND NEUTROPHILS % 3 % (0-10); PLATELET MORPHOLOGY COMMENT NORMAL (NORMAL)
--- NOTE | 2023-10-01 06:16 | RAD ---
EXAM:CHEST, 1 VIEWHISTORY:SOB ;COMPARISON:09/30/2023FINDINGS:The trachea is midline. The cardiac silhouette is unremarkable. COPD. The lungs are clear without focal infiltrate or effusion. The bony thorax is unremarkable.IMPRESSION:COPD.No active cardiopulmonary diseaseTHIS IS AN ELECTRONICALLY VERIFIED FINAL REPORT10/01/2023 6:12 AM - Electronically signed by David Pedro MD
[2023-10-01] MEDS ORDERED: CONSULT PHARMACY - POTASSIUM & MAGNESIUM XX SCH (07:00)
[2023-10-01] MEDS: MAG-OX TAB PO SCH ×2 (08:20→09:11)
[2023-10-01] MEDS: LOPRESSOR TAB 50 MG PO SCH (08:20)
[2023-10-01] MEDS: NORVASC TAB 5 MG PO SCH (08:20)
[2023-10-01] MEDS: SINGULAIR TAB 10 MG PO SCH (08:20)
[2023-10-01] MEDS: MEGACE PO SCH (08:20)
[2023-10-01] MEDS: PROTONIX TAB 40 MG PO SCH (08:20)
[2023-10-01] MEDS: OXYBUTYNIN CHLORIDE ER PO SCH ×2 (08:21→08:26)
[2023-10-01] MEDS: NEURONTIN CAP 100 MG PO SCH (08:25)
[2023-10-01] MEDS: PULMICORT NEB TX 0.5 MG NEB SCH (08:44)
[2023-10-01] MEDS ORDERED: K-DUR TAB 20 MEQ PO SCH (09:00)
[2023-10-01 10:04] VITALS: BP 152/70; RESP 16
[2023-10-01 12:17] VITALS: PULSE 61; TEMP 97.8; O2SAT 97
--- NOTE | 2023-10-03 22:10 | PCM.PROG ---
Progress Note Progress Note for Day of Date of Exam: 09/30/23 Subjective Subjective: Patient is a 58-year-old female admitted for COVID-19 pneumonia and COPD exacerbation. This morning patient is sitting in bed comfortably. No acute events overnight. She is currently on 3 L supplemental oxygen via nasal cannula at this time. Labs/imaging: WBC 8.7, hemoglobin 10.6, platelets 302, sodium 139, potassium 3.6, creatinine 0.67, glucose 127. Patient is currently receiving bronchodilators and IV steroids. Patient continues to improve with strength and breathing. Will continue with current treatment plan. Continue to closely monitor and follow-up labs in the morning. Past Medical Family Social History Allergies: Allergies ASHLEY Inhibitors Allergy (Unknown, Verified 08/17/23 09:44) Cough Comments: Lisinopril Review of Systems ROS: No change since H&P Vital Signs and I&O's Vital Signs: Vital Signs Temperature 98.3 F Pulse Rate 67 Pulse Rate 66 Pulse Rate 71 Pulse Rate 57 Pulse Rate 59 Pulse Rate 56 Respiratory Rate 18 Respiratory Rate 21 Respiratory Rate 24 Respiratory Rate 22 Respiratory Rate 23 Respiratory Rate 22 Blood Pressure 149/67 Blood Pressure 171/72 Blood Pressure 164/74 Blood Pressure 149/68 Blood Pressure 173/72 Blood Pressure 134/61 O2 Sat by Pulse Oximetry 97 O2 Sat by Pulse Oximetry 98 O2 Sat by Pulse Oximetry 99 O2 Sat by Pulse Oximetry 100 O2 Sat by Pulse Oximetry 100 O2 Sat by Pulse Oximetry 98 Intake and Output: Intake & Output 09/28/23 09/29/23 09/30/23 10/01/23 23:59 23:59 23:59 23:59 Intake Total 4102 / 4102 3590 / 3590 3549 / 3549 1207 / 1207 Output Total 4000 / 4000 2700 / 2700 Balance 102 / 102 890 / 890 3549 / 3549 1207 / 1207 Physical Exam Oriented: Normal Eyes: Normal Ear: Normal Nose: Normal Throat: Normal Respiratory: Generalized, Diminished and Rhonchi Cardiovascular: Normal : Normal Auscultation: Bowel Sounds: Normal Tenderness: Normal Skin: Normal Musculoskeletal: Normal Psychiatric: Normal Mood Description: Calm Affect: Normal Speech Pattern: Clear and Appropriate Laboratory and Diagnostics 10/01/23 05:04 10/01/23 05:04 Labs: 09/26/23 21:42 Sputum - Expectorated Sputum Sputum Culture - Final Staphylococcus Aureus Escherichia Coli Acinetobacter Baumanii/Haemoly 09/26/23 21:42 Sputum - Expectorated Sputum - Final 09/27/23 00:40 Blood Blood Culture - Preliminary 09/26/23 00:40 Blood Blood Culture - Preliminary Laboratory WBC 8.8 X10^3/uL (3.6-10.0) 10/01/23 05:04 RBC 4.05 X10^6/uL (3.5-5.4) 10/01/23 05:04 Hgb 12.1 g/dL (12.0-16.0) 10/01/23 05:04 Hct 37.0 % (36.0-47.0) 10/01/23 05:04 MCV 91.3 fL (80.0-100.0) 10/01/23 05:04 MCH 29.8 pg (27.0-34.0) 10/01/23 05:04 MCHC 32.6 g/dL (33.0-35.0) L 10/01/23 05:04 RDW 13.3 % (11.6-16.5) 10/01/23 05:04 Plt Count 321 X10^3/uL (150.0-450.0) 10/01/23 05:04 Plt Count Comment Adequate (ADEQUATE) 10/01/23 05:04 MPV 8.6 fL (7.4-11.0) 10/01/23 05:04 Neut % (Auto) 90.9 % (42.0-75.0) H 10/01/23 05:04 Lymph % (Auto) 4.1 % (21.0-51.0) L 10/01/23 05:04 [place] % (Auto) 4.6 % (0.0-13.0) 10/01/23 05:04 Eos % (Auto) 0.0 % (0.9-2.9) L 10/01/23 05:04 Baso % (Auto) 0.4 % (0.2-1.0) 10/01/23 05:04 Neut # (Auto) 8.0 x10^3/uL (2.2-4.8) H 10/01/23 05:04 Lymph # (Auto) 0.4 X10^3/uL (1.3-2.9) L 10/01/23 05:04 [place] # (Auto) 0.4 x10^3/uL (0.3-0.8) 10/01/23 05:04 Eos # (Auto) 0.0 x10^3/uL (0.0-0.2) 10/01/23 05:04 Baso # (Auto) 0.0 X10^3/uL (0.0-0.1) 10/01/23 05:04 Absolute Nucleated RBC 0.1 /100WBC 10/01/23 05:04 Total Counted 100 10/01/23 05:04 Neutrophils % (Manual) 84 % (39-76) H 10/01/23 05:04 Band Neutrophils % 3 % (0-10) 10/01/23 05:04 Lymphocytes % (Manual) 8 % (13-43) L 10/01/23 05:04 Monocytes % (Manual) 5 % (4-9) 10/01/23 05:04 Plt Morphology Comment Normal (NORMAL) 10/01/23 05:04 RBC Morphology Normal (NORMAL) 10/01/23 05:04 Sample Site Rb 09/29/23 11:18 ABG pH 7.420 (7.35-7.45) 09/29/23 11:18 ABG pCO2 71.0 mmHg (35.0-45.0) H* 09/29/23 11:18 ABG pO2 131.0 mmHg (80.0-100.0) H 09/29/23 11:18 ABG HCO3 46.1 mmol/L (22-26) H* 09/29/23 11:18 ABG O2 Saturation 99.0 % (90-100) 09/29/23 11:18 ABG Base Excess 18.0 mmol/L (-2.0-2.0) H 09/29/23 11:18 Omar Test Na 09/29/23 11:18 A-a Gradient 65.0 mmHg 09/29/23 11:18 FiO2 40.0 09/29/23 11:18 Blood Gas Comments [facility] well gmb 09/29/23 11:18 Sodium 137 mmol/L (136-145) 10/01/23 05:04 Corrected Sodium 138 mmol/L (136-145) 10/01/23 05:04 Potassium 3.1 mmol/L (3.5-5.1) L 10/01/23 05:04 Chloride 96 mmol/L (98-107) L 10/01/23 05:04 Carbon Dioxide 40.3 mmol/L (21-32) H 10/01/23 05:04 BUN 8 mg/dL (7-18) 10/01/23 05:04 Creatinine 0.70 mg/dL (0.55-1.02) 10/01/23 05:04 Est GFR (MDRD) Af Amer > 60 (>60) 10/01/23 05:04 Est GFR (MDRD) Non-Af > 60 (>60) 10/01/23 05:04 Glucose 129 mg/dL (65-99) H 10/01/23 05:04 Lactic Acid 3.3 mmol/L (0.4-2.0) H 09/27/23 06:34 Calcium 8.6 mg/dL (8.5-10.1) 10/01/23 05:04 Corrected Calcium 9.7 mg/dL (8.5-10.1) 10/01/23 05:04 Magnesium 1.8 mg/dL (2.0-2.9) L 10/01/23 05:04 Total Bilirubin 0.20 mg/dL (0.2-1.0) 10/01/23 05:04 AST 29 Units/L (15-37) 10/01/23 05:04 ALT 84 Units/L (12-78) H 10/01/23 05:04 Alkaline Phosphatase 65 Units/L (46-116) 10/01/23 05:04 Creatine Kinase 46 Units/L (26-192) 09/27/23 11:19 Troponin I High Sens 33.5 ng/L (4.0-60.0) 09/27/23 23:00 B-Natriuretic Peptide 78.2 pg/mL (0-79) 09/26/23 21:56 Total Protein 7.0 g/dL (6.4-8.2) 10/01/23 05:04 Albumin 2.6 g/dL (3.4-5.0) L 10/01/23 05:04 Globulin 4.4 g/dL (2.5-4.5) 10/01/23 05:04 Albumin/Globulin Ratio 0.6 Ratio (1.1-2.1) L 10/01/23 05:04 Specimen Type Catherized urine 09/26/23 22:45 Urine Color Yellow (YELLOW) 09/26/23 22:45 Urine Appearance Clear (CLEAR) 09/26/23 22:45 Urine pH 6.0 (5.0 - 8.0) 09/26/23 22:45 Ur Specific [place] 1.020 (1.000-1.030) 09/26/23 22:45 Urine Protein 4+ (NEGATIVE) 09/26/23 22:45 Urine Glucose (UA) Negative (NEGATIVE) 09/26/23 22:45 Urine Ketones Negative (NEGATIVE) 09/26/23 22:45 Urine Blood 4+ (NEGATIVE) 09/26/23 22:45 Urine Nitrite Negative (NEGATIVE) 09/26/23 22:45 Urine Bilirubin Negative (NEGATIVE) 09/26/23 22:45 Urine Urobilinogen Normal (NORMAL) 09/26/23 22:45 Ur Leukocyte Esterase Negative (NEGATIVE) 09/26/23 22:45 Urine RBC 5-10 /HPF (0-3) A 09/26/23 22:45 Urine WBC 0-2 /HPF (0-5) 09/26/23 22:45 Ur Squamous Epith Cells Rare /HPF (NEGATIVE) 09/26/23 22:45 Urine Bacteria Trace /HPF (NEGATIVE) 09/26/23 22:45 Urine Mucus Rare /HPF (NEGATIVE) 09/26/23 22:45 Ur Culture Indicated? No/not indicated 09/26/23 22:45 SARS-CoV-2 (PCR) Positive (NEGATIVE) A 09/26/23 22:08 Influenza Type A (PCR) Negative (NEGATIVE) 09/26/23 22:08 Influenza Type B (PCR) Negative (NEGATIVE) 09/26/23 22:08 RSV (PCR) Negative (NEGATIVE) 09/26/23 22:08 Plan (1) COVID-19: Status: Acute Plan: ADMIT, BIPAP/SUPPLEMENTAL OXGYEN, NORMAL SALINE AT 125 ML/HR, ZOSYN 3.375G IV TID, ROCEPHIN 1G IV X 1 DOSE, PAXLOVID BID, DUONEBS Q6H, PULMICORT NEBS BID, TYLENOL 650MG PO Q6H PRN, SOLU-MEDROL 80MG IV Q8H, VISTARIN 25MG PO Q8H PRN. WE WILL RESUME HER HOME MEDICATIONS OF NORVASC, NEURONTIN, MOTRIN, M EGACE, LOPRESSOR, SINGULAIR, OXYBUTYNIN, ZANAFLEX, PANTOPRAZOLE, AND AMBIEN. (2) COPD exacerbation: Status: Acute (3) Acute respiratory insufficiency: Status: Acute (4) Insomnia: Status: Chronic Qualifiers: Insomnia type: primary Qualified Code(s): F51.01 - Primary insomnia (5) Hypertension: Status: Chronic Qualifiers: Hypertension type: primary hypertension Qualified Code(s): I10 - Essential (primary) hypertension (6) Anxiety: Status: Chronic (7) Gastroesophageal reflux disease: Status: Chronic Qualifiers: Esophagitis presence: esophagitis presence not specified Qualified Code(s): K21.9 - Gastro-esophageal reflux disease without esophagitis
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
== END 2023-10-01 12:41 | disposition home health service (06) | DRG 178 ==
LOC: ER 21:32 → ICU 09-27 02:09
PROVIDERS: ADMIT Internal Medicine; ATTEND Family Medicine
DX: U07.1 COVID-19; R26.89 Other abnormalities of gait and mobility; F41.8 Other specified anxiety disorders; E78.5 Hyperlipidemia, unspecified; R06.02 Shortness of breath; F51.01 Primary insomnia; B96.89 Other specified bacterial agents as the cause of diseases classified elsewhere; K21.9 Gastro-esophageal reflux disease without esophagitis; R06.89 Other abnormalities of breathing; I10 Essential (primary) hypertension; J44.1 Chronic obstructive pulmonary disease with (acute) exacerbation; B95.61 Methicillin susceptible Staphylococcus aureus infection as the cause of diseases classified elsewhere; B96.29 Other Escherichia coli [E. coli] as the cause of diseases classified elsewhere